=== PATIENT | male | born 1965 ===

== ENCOUNTER 2020-04-13 11:14 | Outpatient (REF) | payer OTHER, SELFPAY ==
[2020-04-13 12:52] LABS: Estimated Average Glucose 171 mg/dL; Hemoglobin A1c % 7.6 %
[2020-04-13 13:11] LABS: Alanine Aminotransferase 48 U/L (0-40); Albumin Level 4.6 g/dL (3.5-5.0); Alkaline Phosphatase 96 U/L (39-117); Anion Gap 12 (12-20); Aspartate Amino Transferase 29 U/L (5-37); Bilirubin Total 0.6 mg/dL (0.0-1.0); Blood Urea Nitrogen 17 mg/dL (9-16); Calcium 9.5 mg/dL (8.4-10.2); Carbon Dioxide 28 mmol/L (22-29); Chloride 102 mmol/L (96-108); Estimated Glomerular Filt Rate > 60; Glucose Random 131 mg/dL (60-115); Potassium 4.2 mmol/l (3.3-5.1); Sodium 138 mmol/L (135-145); Total Protein 7.6 g/dL (6.5-8.0)
[2020-04-13 13:31] LABS: Vitamin D 25-OH Total 28.2 ng/mL (>30)
[2020-04-17 19:11] LABS: Calcium (PTHI) 9.8 mg/dL (8.6-10.3); PTHI 40 pg/mL (14-64)
== END 2020-04-13 11:15 | disposition home or self-care (01) ==
LOC: HO.LAB 11:14
PROVIDERS: PCP Physician Assistant; Visit Provider Internal Medicine
DX: E11.65 Type 2 diabetes mellitus with hyperglycemia (principal); E83.52 Hypercalcemia; E55.9 Vitamin D deficiency, unspecified
CPT/HCPCS: 80053; 82306; 83036; 83970

== ENCOUNTER 2020-06-13 10:57 | Outpatient (REF) | payer OTHER, SELFPAY ==
[2020-06-13 13:05] LABS: Alanine Aminotransferase 30 U/L (0-40); Albumin Level 4.8 g/dL (3.5-5.0); Alkaline Phosphatase 84 U/L (39-117); Anion Gap 15 (12-20); Aspartate Amino Transferase 23 U/L (5-37); Bilirubin Total 0.5 mg/dL (0.0-1.0); Blood Urea Nitrogen 21 mg/dL (9-16); Calcium 10.1 mg/dL (8.4-10.2); Carbon Dioxide 25 mmol/L (22-29); Chloride 102 mmol/L (96-108); Cholesterol 220 mg/dL; Estimated Glomerular Filt Rate > 60; Glucose Random 159 mg/dL (60-115); HDL Cholesterol 41 mg/dL; LDL Cholesterol Calculated 124 mg/dl; Potassium 4.2 mmol/l (3.3-5.1); Sodium 138 mmol/L (135-145); Total Protein 7.8 g/dL (6.5-8.0); Triglycerides 279 mg/dL
[2020-06-13 13:22] LABS: Estimated Average Glucose 180 mg/dL; Hemoglobin A1c % 7.9 %
[2020-06-13 13:43] LABS: Creatinine Urine 60.73 mg/dL
[2020-06-13 13:45] LABS: Creatinine Urine 62.27 mg/dL; Microalbum/Creatinine Ratio Ur 96.3 ug/mg cr
[2020-06-14 09:53] LABS: LDL Cholesterol Direct 135 mg/dL (<100)
== END 2020-06-13 10:58 | disposition home or self-care (01) ==
LOC: HO.LAB 10:57
PROVIDERS: PCP Physician Assistant; Visit Provider Internal Medicine
DX: E11.65 Type 2 diabetes mellitus with hyperglycemia (principal); E78.5 Hyperlipidemia, unspecified
CPT/HCPCS: 36415; 80053; 80061; 82043; 83036; 83721

== ENCOUNTER → 2020-07-11 11:00 | Outpatient (BNVA) | payer OTHER, SELFPAY | PROVIDERS: PCP Physician Assistant; Visit Provider Internal Medicine Gastroenterology ==

== ENCOUNTER → 2020-08-14 12:53 | Outpatient (BNVA) | payer OTHER, SELFPAY | PROVIDERS: PCP Physician Assistant; Visit Provider Internal Medicine | DX: E11.65 Type 2 diabetes mellitus with hyperglycemia (principal); E78.5 Hyperlipidemia, unspecified; E83.52 Hypercalcemia; I10 Essential (primary) hypertension | CPT/HCPCS: 82947 ==

== ENCOUNTER 2020-08-17 11:28 | Outpatient (REF) | payer OTHER, SELFPAY ==
[2020-08-17 13:32] LABS: Alanine Aminotransferase 27 U/L (0-40); Albumin Level 4.6 g/dL (3.5-5.0); Alkaline Phosphatase 93 U/L (39-117); Anion Gap 12 (12-20); Aspartate Amino Transferase 25 U/L (5-37); Bilirubin Total 0.9 mg/dL (0.0-1.0); Blood Urea Nitrogen 27 mg/dL (9-16); Calcium 9.7 mg/dL (8.4-10.2); Carbon Dioxide 26 mmol/L (22-29); Chloride 102 mmol/L (96-108); Cholesterol 196 mg/dL; Estimated Glomerular Filt Rate 49; Glucose Random 256 mg/dL (60-115); HDL Cholesterol 40 mg/dL; LDL Cholesterol Calculated 78 mg/dl; Potassium 4.4 mmol/L (3.3-5.1); Sodium 136 mmol/L (135-145); Total Protein 7.5 g/dL (6.5-8.0); Triglycerides 391 mg/dL
[2020-08-17 17:49] LABS: Anion Gap 16 (12-20); Blood Urea Nitrogen 24 mg/dL (9-16); Calcium 9.3 mg/dL (8.4-10.2); Carbon Dioxide 26 mmol/L (22-29); Chloride 99 mmol/L (96-108); Estimated Glomerular Filt Rate > 60; Glucose Random 87 mg/dL (60-115); Potassium 3.5 mmol/L (3.3-5.1); Sodium 137 mmol/L (135-145)
[2020-08-18 02:46] LABS: LDL Cholesterol Direct 97 mg/dL (<100)
== END 2020-08-17 11:29 | disposition home or self-care (01) ==
LOC: HO.LAB 11:28
PROVIDERS: PCP Physician Assistant; Visit Provider Internal Medicine
DX: E11.65 Type 2 diabetes mellitus with hyperglycemia (principal)
CPT/HCPCS: 36415; 80048; 80053; 80061; 83721

== ENCOUNTER 2020-08-30 16:03 | Outpatient (REF) | payer OTHER, SELFPAY ==
--- NOTE | ~2020-08-30 | XR_ITS ---
EXAMINATION: XR CHEST CLINICAL INFORMATION: Cough COMPARISON: None TECHNIQUE: 2 views of the chest were obtained. FINDINGS: No convincing evidence for an acute process. Lung jones are grossly clear. The heart size is within normal limits. The hilar structures do not appear pathologically enlarged. There is no effusion. Mild degenerative changes in the thoracic spine. XR/XR chest 2V IMPRESSION: No acute process.
== END 2020-08-30 16:04 | disposition home or self-care (01) ==
LOC: HO.HMGCX 16:03
PROVIDERS: PCP Physician Assistant; Visit Provider Nurse Practitioner Family
DX: R05 Cough (principal)
CPT/HCPCS: 71046

== ENCOUNTER 2020-08-30 16:52 | Outpatient (REF) | payer OTHER, SELFPAY ==
[2020-08-31 12:35] LABS: Influenza A PCR NEGATIVE (Negative); Influenza B PCR NEGATIVE (Negative); Resp Syncy Virus RNA Qual PCR NEGATIVE (Negative); SARS COV2 PCR INHOUSE NEGATIVE (Negative)
== END 2020-08-30 16:53 | disposition home or self-care (01) ==
LOC: HO.LAB 16:52
PROVIDERS: Visit Provider Nurse Practitioner Family
DX: R05 Cough (principal); Z20.822 Contact with and (suspected) exposure to COVID-19
CPT/HCPCS: 0241U; 36415

== ENCOUNTER 2020-10-02 07:13 | Outpatient (REF) | payer OTHER, SELFPAY | END 2020-10-02 07:14 | disposition home or self-care (01) | LOC: HO.HMGCLDS 07:13 | PROVIDERS: PCP Physician Assistant; Visit Provider Internal Medicine | DX: Z20.822 Contact with and (suspected) exposure to COVID-19 (principal) | CPT/HCPCS: C9803; U0003; U0005 ==

== ENCOUNTER 2020-11-07 14:54 | Emergency (ER) | payer OTHER, SELFPAY ==
--- NOTE | ~2020-11-07 | US_ITS ---
EXAMINATION: PENILE ULTRASOUND CLINICAL INFORMATION: Ecchymosis with trauma with question of penile fracture COMPARISON: None TECHNIQUE: Ultrasound of the penis was performed with color flow Doppler imaging. FINDINGS: Both corpora cavernosum corpora spongiosum appear normal. No break or discontinuity is seen in the tunica albuginea. There is diffuse skin thickening present but no focal hematoma is identified. Color-flow Doppler imaging shows no abnormal areas of blood flow outside of the corpora. US/US penile IMPRESSION: Penile edema, but no evidence of traumatic rupture.
[2020-11-07 15:00] VITALS: BP 137/79; PULSE 80; RESP 18; TEMP 36.8; O2SAT 99; BMI 25.8
--- NOTE | 2020-11-07 16:49 | ED.MALEGU ---
HPI - Male Genitourinary General Chief complaint: Urogenital-Male Stated complaint: URINE ISSUE Time Seen by Provider: 11/07/20 16:49 Source: patient Mode of arrival: ambulatory Limitations: no limitations History of Present Illness HPI Narrative: Patient noticed slight pain in the penis 4 weeks ago after forceful intercourse. Able to urinate no significant pain today while masturbating he noticed slight discomfort with ecchymosis on the dorsum of the penis no hematuria no significant pain patient is supposed to see urologist next week came here because he noticed a discoloration Related Data Home Medications Medication Instructions Recorded Confirmed cholecalciferol (vitamin D3) 50 50 mcg PO DAILY 04/05/20 08/14/20 mcg (2,000 unit) capsule empagliflozin 25 mg tablet 25 mg PO QAM 04/05/20 08/14/20 blood sugar diagnostic #10 ea 05/22/20 08/14/20 blood-glucose meter #1 ea 05/22/20 08/14/20 ibuprofen 800 mg tablet 800 mg PO Q8H PRN 05/22/20 08/14/20 lancets 28 gauge #100 ea 05/22/20 08/14/20 lancets 30 gauge #100 ea 05/22/20 08/14/20 Previous Rx's Medication Instructions Recorded atorvastatin 40 mg tablet 40 mg PO DAILY 30 Days #30 tab 04/05/20 lisinopril 2.5 mg tablet 2.5 mg PO DAILY 30 Days #30 tab 04/05/20 amoxicillin 875 mg-potassium 1 tab PO BID #14 tab 04/28/20 clavulanate 125 mg tablet pentoxifylline 400 mg 400 mg PO BID 90 Days #180 tab 05/11/20 tablet,extended release pen needle, diabetic 32 gauge x #50 ea 08/14/20 1/ semaglutide 0.5 mg SUBCUT QWEEK #1.5 ml 08/14/20 azithromycin 250 mg tablet See Rx Instructions PO .COMPLEX #6 08/30/20 tab prednisone 20 mg tablet 40 mg PO DAILY 5 Days #10 tab 08/30/20 allopurinol 100 mg tablet 100 mg PO DAILY 90 Days #90 tab 10/10/20 Allergies Allergy/AdvReac Type Severity Reaction Status Date / Time No Known Allergies Allergy Verified 08/30/20 16:31 Review of Systems Review of Systems: Yes all other systems are reviewed and are negative PMFSH Past Medical History Medical History Acute idiopathic gout of left foot Colon cancer screening Erectile dysfunction Goiter HLD (hyperlipidemia) HTN (hypertension) Hypercalcemia Hyperlipidemia Hypertriglyceridemia Hypogonadism in male Impaired glucose metabolism HERNANDEZ (nonalcoholic steatohepatitis) Pain of right thumb Restless legs syndrome T2DM (type 2 diabetes mellitus) Tubular adenoma of colon Type 2 diabetes mellitus with hyperglycemia, without long-term current use of insulin Urticaria Vitamin D deficiency Surgical History Hx of colonoscopy Hx of vasectomy Family History Family History Father Diabetes CVA (cerebral vascular accident) Mother Diabetes CVD (cardiovascular disease) Breast cancer screening Social History Social History Household Members: Spouse Alcohol intake: current Alcohol intake frequency: does not drink Physical Exam Vital Signs: Vital Signs: Last Vital Signs Temp 98.2 F 11/07/20 15:00 Pulse 80 11/07/20 15:00 Resp 18 11/07/20 15:00 BP 137/79 11/07/20 15:00 Pulse Ox 99 11/07/20 15:00 Body Mass Index 25.8 Const: General: no acute distress GI: Inspection: Yes normal to inspection Palpation (GI): Soft to palpation and nontender : Penis: circumcised, ecchymosis and no masses Meatus: meatus normal Scrotum: scrotum normal Testes: Testes normal Male genitals images: 1. Ecchymosis on dorsum of the penis normal contour of the penis muscles no deformity noticed nontender MDM - Male Genitourinary MDM Narrative Medical decision making narrative: Patient has ecchymosis of the penis after forceful masturbation ultrasound negative for any fluid collection or fracture case discussed with urologist will follow-up as outpatient as needed Lab Data Attestation: I reviewed the patient's lab results. Labs: Lab Results 11/07/20 11/07/20 Range/Units 18:01 18:32 POC Glucose 111 (60-115) mg/dL Urine Color YELLOW Urine Appearance CLEAR Urine pH 6.0 (5.0-8.0) Ur Specific Warren 1.025 (1.005-1.025) Urine Protein NEG (NEG-TRACE) MG/DL Urine Glucose (UA) >=1000 H (NEG) MG/DL Urine Ketones NEG (NEG) MG/DL Urine Blood NEG (NEG) Urine Nitrite NEG (NEG) Ur Leukocyte Esterase NEG (NEG) Urine RBC 0-2 (0) /HPF Urine WBC 0-2 (0-4) /HPF Ur Squamous Epith Cells TRACE /LPF Urine Bacteria NONE /LPF Imaging Data Ultrasound: Radiologist's impression: [address] [id number] ReportSigned Patient: Hill Pantoja [facility]#: [id number]: 1965Acct:[id number]/Sex: 55 / MADM Date: 11/07/20Loc: EDAttending Dr: Ordering Physician: Mark Moreno MD Date of Service: 11/07/20 Procedure(s): US penile Accession Number(s): [id number] cc: Mark Moreno MD~ EXAMINATION: PENILE ULTRASOUND CLINICAL INFORMATION: Ecchymosis with trauma with question of penile fracture COMPARISON: None TECHNIQUE: Ultrasound of the penis was performed with color flow Doppler imaging. FINDINGS: Both corpora cavernosum corpora spongiosum appear normal. No break or discontinuity is seen in the tunica albuginea. There is diffuse skin thickening present but no focal hematoma is identified. Color-flow Doppler imaging shows no abnormal areas of blood flow outside of the corpora. US/US penile IMPRESSION: Penile edema, but no evidence of traumatic ruptur Discharge Plan Discharge Clinical Impression: Contusion Patient Disposition: Home, Self-Care Instructions: Contusion in Adults (ED) Additional Instructions: Local care as advised Follow-up with Dr. Ochoa as scheduled Report to ER if increased pain Prescriptions: No Action amoxicillin-pot clavulanate [Augmentin] 875-125 mg tablet 1 tab PO BID Qty: 14 RF: 0 pentoxifylline 400 mg tablet extended release 400 mg PO BID 90 Days Qty: 180 RF: 1 allopurinol 100 mg tablet 100 mg PO DAILY 90 Days Qty: 90 RF: 2 (DME) lancets 28 gauge misc See Rx Instructions ea topical BID Qty: 100 RF: 0 (DME) lancets 30 gauge misc See Rx Instructions lancet .ROUTE BID Qty: 100 RF: 0 (DME) OneTouch Verio test strips Strip See Rx Instructions strip Not Applicable BID Qty: 10 RF: 0 ibuprofen 800 mg tablet 800 mg PO Q8H PRN (Reason: pain) RF: 0 (DME) blood-glucose meter Misc See Rx Instructions ea .ROUTE BID Qty: 1 RF: 0 azithromycin 250 mg tablet See Rx Instructions PO .COMPLEX Qty: 6 RF: 0 prednisone 20 mg tablet 40 mg PO DAILY 5 Days Qty: 10 RF: 0 Ozempic 0.25 mg or 0.5 mg(2 mg/1.5 mL) pen injector 0.5 mg subcut QWEEK Qty: 1.5 RF: 11 (DME) pen needle, diabetic [BD Ultra-Fine Micro Pen Needle] 32 gauge x 1/4 needle See Rx Instructions .ROUTE .MEDSUPPLY Qty: 50 RF: 11 Jardiance 25 mg tablet 25 mg PO QAM RF: 0 cholecalciferol (vitamin D3) 50 mcg (2,000 unit) capsule 50 mcg PO DAILY RF: 0 atorvastatin 40 mg tablet 40 mg PO DAILY 30 Days Qty: 30 RF: 11 lisinopril 2.5 mg tablet 2.5 mg PO DAILY 30 Days Qty: 30 RF: 11 Referrals: Jan Ochoa MD [Physician] - 1 week Interventions: ED Discharge Assessment Last Done: 11/07/20 19:06 Discharge Date/Time: 11/07/20 19:06
[2020-11-07 18:18] LABS: Glucose Urine UA >=1000 MG/DL (NEG); Leukocyte Esterase Urine NEG (NEG); Nitrite Urine NEG (NEG); Specific Gravity - Urine 1.025 (1.005-1.025); Urine Blood NEG (NEG); Urine Ketones NEG (NEG); Urine Protein NEG (NEG-TRACE)
[2020-11-07 18:24] LABS: Appearance Urine CLEAR; Color Urine YELLOW
[2020-11-07 18:36] LABS: Glucose, Whole Blood 111 mg/dL (60-115)
[2020-11-07 18:42] LABS: RBC Urine 0-2 /HPF (0); Squamous Epithelial Cell Urine TRACE /LPF; WBC Urine 0-2 /HPF (0-4)
== END 2020-11-07 19:06 | disposition home or self-care (01) ==
PROVIDERS: Emergency Provider Internal Medicine; PCP Physician Assistant
DX: N48.89 Other specified disorders of penis (principal); S30.21XA Contusion of penis, initial encounter; X50.1XXA Overexertion from prolonged static or awkward postures, initial encounter; I10 Essential (primary) hypertension; E11.9 Type 2 diabetes mellitus without complications; E78.5 Hyperlipidemia, unspecified; Y93.89 Activity, other specified; Y92.013 Bedroom of single-family (private) house as the place of occurrence of the external cause; Y99.9 Unspecified external cause status
CPT/HCPCS: 76857; 81001; 82947; 99283; 99284

== ENCOUNTER → 2020-11-20 12:01 | Outpatient (BNVA) | payer OTHER, SELFPAY | PROVIDERS: PCP Physician Assistant; Visit Provider Internal Medicine | DX: E11.65 Type 2 diabetes mellitus with hyperglycemia (principal); E83.52 Hypercalcemia; E78.5 Hyperlipidemia, unspecified; I10 Essential (primary) hypertension; Z79.899 Other long term (current) drug therapy | CPT/HCPCS: 82947 ==

== ENCOUNTER → 2021-02-12 08:21 | Outpatient (BNVA) | payer OTHER, SELFPAY | PROVIDERS: PCP Physician Assistant; Visit Provider Internal Medicine Gastroenterology ==

== ENCOUNTER → 2021-02-28 12:39 | Outpatient (BNVA) | payer OTHER, SELFPAY | PROVIDERS: PCP Physician Assistant; Visit Provider Nurse Practitioner Gerontology | DX: E11.65 Type 2 diabetes mellitus with hyperglycemia (principal); E78.5 Hyperlipidemia, unspecified; E55.9 Vitamin D deficiency, unspecified; I10 Essential (primary) hypertension | CPT/HCPCS: 82947; 83036 ==

== ENCOUNTER 2021-03-12 09:58 | Outpatient (REF) | payer OTHER, SELFPAY ==
--- NOTE | ~2021-03-12 | US_ITS ---
EXAMINATION: US ABDOMEN LIMITED WITH LIVER ELASTOGRAPHY CLINICAL INFORMATION: Mesh. COMPARISON: Previous ultrasound November [address] June 2017 TECHNIQUE: Real-time imaging of the abdominal viscera. Noninvasive ultrasound liver fibrosis assessment is performed using Yovani ElastPQ point quantification shear wave elastography (pSWE) with a C5-2 MHz transducer. Multiple elastography samples are obtained. FINDINGS: PANCREAS: The visualized pancreatic head is normal in appearance. The remainder of the pancreas is obscured from visualization by the overlying bowel gas. LIVER: Liver echotexture is increased probably representing fatty infiltration. There is a hypoechoic area adjacent to the gallbladder, a characteristic location of focal fatty sparing.. No other focal lesion or intrahepatic biliary duct dilatation. The liver is normal in size and contour. The right lobe measures 14 cm in length. The left lobe measures 11 cm in length. Portal flow is normal/hepatopedal Shear wave liver elastography median stiffness is 1.8 m/s (reference: normal median stiffness is 1.3 m/s or less). IQR/median stiffness to assess sampling precision is 0.1 (reference: good quality data set is IQR/median stiffness of 0.15 or less). GALLBLADDER: Normal. COMMON BILE DUCT: Normal in caliber measuring 0.2 cm in diameter. RIGHT KIDNEY: Normal. No hydronephrosis. No renal calculi or focal parenchymal lesions. The kidney measures 10 cm in maximum dimension. FREE FLUID: None. US/US abdomen fu w elastography IMPRESSION: 1. Impression: Echogenic liver probably representing fatty infiltration. Contracted gallbladder. Limited visualization of the pancreas. 2. Liver elastography: Adequate liver sampling. Slightly elevated liver stiffness suggestive of compensated advanced chronic liver disease but need further test for confirmation. REFERENCE: Society of Radiologists in Ultrasound Liver Stiffness Thresholds (2019): LIVER STIFFNESS THRESHOLDS: *Liver Stiffness equal or less than 1.3 m/s: High probability of being normal. *Liver Stiffness less than 1.7 m/s: In the absence of other known clinical signs, rules out compensated advanced chronic liver disease. *Liver Stiffness 1.7-2.1 m/s: Suggestive of compensated advanced chronic liver disease but need further test for confirmation. *Liver Stiffness over 2.1 m/s: Rules in compensated advanced chronic liver disease. *Liver Stiffness over 2.4 m/s: Suggestive of clinically significant portal hypertension. QUALITY OF DATA SET: *IQR/Median value equal or less than 0.15 implies a quality data set. *IQR/Median value over 0.15 implies a poor quality data set. SIGNIFICANT CHANGE FROM PRIOR EXAM: Significant change if liver stiffness measurement is 10% or greater from prior exam. OTHER CONSIDERATIONS: The stage of liver fibrosis may be overestimated in the setting of acute hepatitis, liver inflammation, elevated liver function tests, hepatic vascular congestion, obstructive cholestasis, non-fasting state, and infiltrative diseases such as amyloidosis and lymphoma. In some patients with NAFLD, the liver stiffness thresholds for compensated advanced chronic liver disease may be lower. In causes other than viral hepatitis and NAFLD, liver stiffness thresholds are not well established.
== END 2021-03-12 09:59 | disposition home or self-care (01) ==
LOC: HO.US 09:58
PROVIDERS: PCP Physician Assistant; Visit Provider Internal Medicine Rheumatology
DX: K75.81 Nonalcoholic steatohepatitis (NASH) (principal)
CPT/HCPCS: 76705; 76981

== ENCOUNTER → 2021-09-24 08:43 | Outpatient (BNVA) | payer OTHER, SELFPAY | PROVIDERS: PCP Physician Assistant; Visit Provider Nurse Practitioner Gerontology | DX: E11.65 Type 2 diabetes mellitus with hyperglycemia (principal); E78.5 Hyperlipidemia, unspecified; E55.9 Vitamin D deficiency, unspecified; I10 Essential (primary) hypertension | CPT/HCPCS: 82947 ==

== ENCOUNTER 2021-09-24 09:19 | Outpatient (REF) | payer OTHER, SELFPAY ==
[2021-09-24 11:15] LABS: Alanine Aminotransferase 31 U/L (0-40); Albumin Level 4.5 g/dL (3.5-5.0); Alkaline Phosphatase 85 U/L (39-117); Anion Gap 12 (12-20); Aspartate Amino Transferase 21 U/L (5-37); Bilirubin Total 0.5 mg/dL (0.0-1.0); Blood Urea Nitrogen 15 mg/dL (9-16); Calcium 9.9 mg/dL (8.4-10.2); Carbon Dioxide 29 mmol/L (22-29); Chloride 104 mmol/L (96-108); Cholesterol 211 mg/dL; Estimated Glomerular Filt Rate > 60; Glucose Fasting 127 mg/dL (60-99); HDL Cholesterol 36 mg/dL; LDL Cholesterol Calculated 131 mg/dl; Potassium 4.9 mmol/L (3.3-5.1); Sodium 140 mmol/L (135-145); Total Protein 7.7 g/dL (6.5-8.0); Triglycerides 224 mg/dL
[2021-09-24 11:36] LABS: Prostate Specific Antigen Scr 1.13 ng/mL (<0.05-4.0); Vitamin D 25-OH Total 17.5 ng/mL (>30)
[2021-09-24 12:34] LABS: Creatinine Urine 89.81 mg/dL; Microalbum/Creatinine Ratio Ur 80.1 ug/mg cr
[2021-09-26 03:12] LABS: LDL Cholesterol Direct 130 mg/dL (<100)
== END 2021-09-24 09:20 | disposition home or self-care (01) ==
LOC: HO.10HDL 09:19
PROVIDERS: Physician Assistant; Visit Provider Nurse Practitioner Gerontology
DX: E11.65 Type 2 diabetes mellitus with hyperglycemia (principal); E11.21 Type 2 diabetes mellitus with diabetic nephropathy; N52.9 Male erectile dysfunction, unspecified; I10 Essential (primary) hypertension; E78.5 Hyperlipidemia, unspecified; K75.81 Nonalcoholic steatohepatitis (NASH); E55.9 Vitamin D deficiency, unspecified; Z12.5 Encounter for screening for malignant neoplasm of prostate; Z79.4 Long term (current) use of insulin
CPT/HCPCS: 36415; 80053; 80061; 82043; 82306; 83721; 84153

== ENCOUNTER → 2021-09-28 11:16 | Outpatient (BNVA) | payer OTHER, SELFPAY | PROVIDERS: Referring Provider Physician Assistant; Visit Provider Internal Medicine Gastroenterology | DX: Z13.89 Encounter for screening for other disorder (principal) ==

== ENCOUNTER 2022-03-25 11:38 | Outpatient (REF) | payer OTHER, SELFPAY ==
--- NOTE | ~2022-03-25 | XR_ITS ---
EXAMINATION: XR hand wrist RT, XR hand wrist LT CLINICAL INFORMATION: Reason for Exam M79.641 - Pain in right hand COMPARISON: None. TECHNIQUE: 4 views of the bilateral hands and wrists XR/XR hand wrist RT FINDINGS/IMPRESSION: * Punctate ossific density adjacent to the right distal ulna at the ulnocarpal joint may reflect an intra-articular loose body or age-indeterminate. Correlate with point tenderness no acute fracture or dislocation of the left hand. * Joint spaces are maintained without significant degenerative change. * No soft tissue abnormality.
--- NOTE | ~2022-03-25 | XR_ITS ---
EXAMINATION: XR hand wrist RT, XR hand wrist LT CLINICAL INFORMATION: Reason for Exam M79.641 - Pain in right hand COMPARISON: None. TECHNIQUE: 4 views of the bilateral hands and wrists XR/XR hand wrist LT FINDINGS/IMPRESSION: * Punctate ossific density adjacent to the right distal ulna at the ulnocarpal joint may reflect an intra-articular loose body or age-indeterminate. Correlate with point tenderness no acute fracture or dislocation of the left hand. * Joint spaces are maintained without significant degenerative change. * No soft tissue abnormality.
[2022-03-25 12:23] LABS: Hematocrit 43.8 % (42.0-52.0); Hemoglobin 15.5 g/dl (14.0-18.0); Mean Corpuscular HGB Conc 35.4 g/dl (31.0-36.0); Mean Corpuscular Hemoglobin 31.6 pg (27.0-33.0); Mean Corpuscular Volume 89.4 fL (80.0-98.0); Mean Platelet Volume 10.2 fL (9.4-12.4); Platelet Count 178 X10*3/uL (160-400); White Blood Count 7.4 X10*3/uL (4.8-10.8)
[2022-03-25 12:38] LABS: Estimated Average Glucose 154 mg/dL
[2022-03-25 12:46] LABS: Creatinine Urine 176.78 mg/dL; Microalbum/Creatinine Ratio Ur 125.5 ug/mg cr
[2022-03-25 12:52] LABS: Alanine Aminotransferase 43 U/L (0-40); Albumin Level 4.8 g/dL (3.5-5.0); Alkaline Phosphatase 91 U/L (39-117); Anion Gap 15 (12-20); Aspartate Amino Transferase 30 U/L (5-37); Bilirubin Total 0.6 mg/dL (0.0-1.0); Blood Urea Nitrogen 14 mg/dL (9-16); Carbon Dioxide 25 mmol/L (22-29); Chloride 106 mmol/L (96-108); Cholesterol 221 mg/dL; Estimated Glomerular Filt Rate > 60; Glucose Fasting 107 mg/dL (60-99); HDL Cholesterol 38 mg/dL; LDL Cholesterol Calculated 132 mg/dl; Potassium 4.8 mmol/L (3.3-5.1); Rheumatoid Factor < 15.0 IU/mL (<15.0); Sodium 141 mmol/L (135-145); Total Protein 7.9 g/dL (6.5-8.0); Triglycerides 255 mg/dL; Uric Acid 7.1 mg/dL (3.4-7.0)
[2022-03-25 13:06] LABS: TSH reflex Free T4 2.47 uIU/mL (0.32-4.0)
[2022-03-27 15:36] LABS: Cyclic Citrullinated Peptide <16 UNITS
== END 2022-03-25 11:39 | disposition home or self-care (01) ==
LOC: HO.LAB 11:38
PROVIDERS: PCP Physician Assistant; Visit Provider Physician Assistant
DX: E11.65 Type 2 diabetes mellitus with hyperglycemia (principal); I10 Essential (primary) hypertension; E78.5 Hyperlipidemia, unspecified; M10.9 Gout, unspecified; M79.641 Pain in right hand; M79.642 Pain in left hand
CPT/HCPCS: 36415; 73110; 73130; 80053; 80061; 82043; 83036; 84443; 84550; 85027; 86200; 86431

== ENCOUNTER 2022-08-01 10:01 | Outpatient (REF) | payer OTHER, SELFPAY ==
--- NOTE | ~2022-08-01 | US_ITS ---
EXAMINATION: US ABDOMEN LIMITED WITH LIVER ELASTOGRAPHY CLINICAL INFORMATION: Nonalcoholic steatohepatitis. COMPARISON: None. TECHNIQUE: Real-time imaging of the abdominal viscera. Noninvasive ultrasound liver fibrosis assessment is performed using Yovani ElastPQ point quantification shear wave elastography (2D-SWE) with a C5-2 MHz transducer. Multiple elastography samples are obtained. FINDINGS: PANCREAS: Normal. The visualized pancreatic head and body are normal in appearance. The remainder of the pancreas is obscured from visualization by the overlying bowel gas. LIVER: The liver demonstrates normal size, contour and diffuse increased echogenicity. There is focal fatty sparing adjacent to gallbladder. No focal lesion or intrahepatic biliary duct dilatation. The right hepatic lobe measures 15.1 cm in length. The left hepatic lobe measures 11.7 cm in length. Portal flow is hepatopedal. Shear wave liver elastography median stiffness is 1.90 m/s (reference: normal median stiffness is 1.3 m/s or less). IQR/median stiffness to assess sampling precision is 0.06 (reference: good quality data set is IQR/median stiffness of 0.15 or less). GALLBLADDER: Normal. The gallbladder is physiologically distended without evidence of stones, sludge, polyps, wall thickening or pericholecystic fluid. COMMON BILE DUCT: Normal in caliber measures 0.3 cm in diameter. RIGHT KIDNEY: Normal. No hydronephrosis. No renal calculi or focal parenchymal lesions. The kidney measures 9.0 cm in maximum dimension. FREE FLUID: None. US/US abdomen fu w elastography IMPRESSION: 1. Diffuse hepatic steatosis without focal lesion. There is focal fatty sparing adjacent to gallbladder. 2. Liver elastography: Median liver stiffness measures 1.90 m/s which corresponds to cACLD suggestive. REFERENCE: Society of Radiologists in Ultrasound Liver Stiffness Thresholds (2020): LIVER STIFFNESS THRESHOLDS: *Liver Stiffness equal or less than 1.3 m/s: High probability of being normal. *Liver Stiffness less than 1.7 m/s: In the absence of other known clinical signs, rules out compensated advanced chronic liver disease. *Liver Stiffness 1.7-2.1 m/s: Suggestive of compensated advanced chronic liver disease but need further test for confirmation. *Liver Stiffness over 2.1 m/s: Rules in compensated advanced chronic liver disease. *Liver Stiffness over 2.4 m/s: Suggestive of clinically significant portal hypertension. QUALITY OF DATA SET: *IQR/Median value equal or less than 0.15 implies a quality data set. *IQR/Median value over 0.15 implies a poor quality data set. SIGNIFICANT CHANGE FROM PRIOR EXAM: Significant change if liver stiffness measurement is 10% or greater from prior exam. OTHER CONSIDERATIONS: The stage of liver fibrosis may be overestimated in the setting of acute hepatitis, liver inflammation, elevated liver function tests, hepatic vascular congestion, obstructive cholestasis, non-fasting state, and infiltrative diseases such as amyloidosis and lymphoma. In some patients with NAFLD, the liver stiffness thresholds for compensated advanced chronic liver disease may be lower. In causes other than viral hepatitis and NAFLD, liver stiffness thresholds are not well established.
== END 2022-08-01 10:02 | disposition home or self-care (01) ==
LOC: HO.US 10:01
PROVIDERS: PCP Internal Medicine Gastroenterology; Visit Provider Internal Medicine Gastroenterology
DX: K75.81 Nonalcoholic steatohepatitis (NASH) (principal); K74.60 Unspecified cirrhosis of liver
CPT/HCPCS: 76705; 76981

== ENCOUNTER 2022-10-15 11:16 | Outpatient (REF) | payer OTHER, SELFPAY ==
[2022-10-15 12:22] LABS: Hematocrit 39.7 % (42.0-52.0); Mean Corpuscular HGB Conc 35.3 g/dl (31.0-36.0); Mean Corpuscular Hemoglobin 30.9 pg (27.0-33.0); Mean Corpuscular Volume 87.6 fL (80.0-98.0); Mean Platelet Volume 10.4 fL (9.4-12.4); Platelet Count 186 X10*3/uL (160-400); Red Blood Count 4.53 X10*6/uL (4.60-5.80); Red Cell Distribution Width 12.2 % (11.0-16.0); White Blood Count 5.8 X10*3/uL (4.8-10.8)
[2022-10-15 12:40] LABS: Estimated Average Glucose 209 mg/dL; Hemoglobin A1c % 8.9 %
[2022-10-15 13:19] LABS: Alanine Aminotransferase 36 U/L (0-40); Albumin Level 4.5 g/dL (3.5-5.0); Alkaline Phosphatase 98 U/L (39-117); Anion Gap 9 (12-20); Aspartate Amino Transferase 30 U/L (5-37); Bilirubin Total 0.7 mg/dL (0.0-1.0); Blood Urea Nitrogen 14 mg/dL (9-16); Calcium 9.8 mg/dL (8.4-10.2); Carbon Dioxide 30 mmol/L (22-29); Chloride 102 mmol/L (96-108); Cholesterol 189 mg/dL; Estimated Glomerular Filt Rate > 60; Glucose Fasting 141 mg/dL (60-99); HDL Cholesterol 38 mg/dL; LDL Cholesterol Calculated 106 mg/dl; Potassium 4.3 mmol/L (3.3-5.1); Sodium 137 mmol/L (135-145); Total Protein 7.4 g/dL (6.5-8.0); Triglycerides 229 mg/dL
[2022-10-15 13:20] LABS: TSH reflex Free T4 2.14 uIU/mL (0.32-4.0)
[2022-10-15 13:25] LABS: Microalbum/Creatinine Ratio Ur 333.6 ug/mg cr
== END 2022-10-15 11:17 | disposition home or self-care (01) ==
LOC: HO.LAB 11:16
PROVIDERS: PCP Physician Assistant; Visit Provider Physician Assistant
DX: E11.65 Type 2 diabetes mellitus with hyperglycemia (principal); M10.9 Gout, unspecified; I10 Essential (primary) hypertension; E78.5 Hyperlipidemia, unspecified
CPT/HCPCS: 36415; 80053; 80061; 82043; 83036; 84443; 84550; 85027

== ENCOUNTER 2022-12-11 11:16 | Outpatient (AMB) | payer OTHER, SELFPAY ==
[2022-12-11 11:20] VITALS: BP 124/80; PULSE 89; O2SAT 100; BMI 22.1
--- NOTE | 2022-12-11 11:20 | A.OFFPC_ITS ---
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 Lidder Required: No Allergies No Known Allergies Allergy (Verified 12/11/22 11:41) Medication List - Last Reconciled 12/11/22 by ELENITA Maria atorvastatin 40 mg PO DAILY blood sugar diagnostic (OneTouch Verio test strips) 4x daily blood sugar diagnostic 4x daily blood-glucose meter As directed blood-glucose meter (OneTouch Verio Meter) As directed cholecalciferol (vitamin D3) 25 mcg PO DAILY empagliflozin 25 mg PO QAM 30 days gemfibrozil 600 mg PO BID lancets As directed lancets As directed pen needle, diabetic (BD Ultra-Fine Micro Pen Needle) Once a week semaglutide 1 mg (0.75 mL) subcut QWEEK 4 weeks tadalafil (Cialis) 20 mg PO DAILY PRN 10 days Tobacco use date assessed: 12/11/22 HPI Skin Issue HPI Details Patient is a 57-year-old male who presents today for an office visit due to multiple skin moles for long time now. Patient of CHRISTA Salinas. medical history significant for diabetes, hypertension, hyperlipidemia, HERNANDEZ among others. Patient reports skin moles on his left arm right rib area, and right leg. Denies pain, no discharge. Reports that his grandmother did have skin cancer. Wants these moles to be assessed. [facility] Medical History Acute idiopathic gout of left foot Colon cancer screening Erectile dysfunction Goiter HLD (hyperlipidemia) HTN (hypertension) Hyperlipidemia Hypertriglyceridemia Hypogonadism in male Impaired glucose metabolism HERNANDEZ (nonalcoholic steatohepatitis) Pain of right thumb Restless legs syndrome T2DM (type 2 diabetes mellitus) Tubular adenoma of colon Type 2 diabetes mellitus with hyperglycemia, without long-term current use of insulin Urticaria Vitamin D deficiency Surgical History Hx of colonoscopy Hx of vasectomy Family History Father Diabetes CVA (cerebral vascular accident) Mother Diabetes CVD (cardiovascular disease) Breast cancer screening Social History Household Members: Spouse Housing: House Alcohol intake: current Alcohol intake frequency: holidays/special occasions only Alcohol type: beer Patient Tobacco Use Status: Never used Tobacco e-Cigarette/Vaping Use: Never Used service: No Current occupational status: employed Cognitive needs: No Hearing needs: No Vision needs: No Questionnaire PHQ-9 Over the last 2 weeks, how often have you been bothered by any of the following problems? 1. Little interest or pleasure in doing things: not at all 2. Feeling down, depressed, or hopeless: not at all 3. Trouble falling or staying asleep, or sleeping too much: not at all 4. Feeling tired or having little energy: not at all 5. Poor appetite or overeating: not at all 6. Feeling bad about yourself - or that you are a failure or have let yourself or your family down: not at all 7. Trouble concentrating on things, such as reading the newspaper or watching television: not at all 8. Moving or speaking so slowly that other people could have noticed. Or the opposite - being so fidgety or restless that you have been moving around a lot more than usual: not at all 9. Thoughts that you would be better off or of hurting yourself in some way: not at all Total score: 0 Depression Screening Interpretation: Negative 22396 - PHQ-9 Billing: Yes Source: Developed by Drs. Oniel Paul, Evelin Wright, Keenan Schmidt and colleagues, with an educational valdez from [employer]. Thrive Questionnaire Date Thrive assessed: 08/12/22 AUDIT C Alcohol Use Questionnaire (AUDIT-C) 1. How often do you have a drink containing alcohol?: Monthly or less 2. How many drinks containing alcohol do you have on a typical day when you are drinking?: 1 or 2 3. How often do you have six or more drinks on one occasion?: Never Total Score: 1 Score Reviewed/Action Taken: No PAULA-7 AMB Questionnaire PAULA-7 Date PAULA - 7 assessed: 08/12/22 Source: Developed by Drs. Oniel Paul, Evelin Wright, Keenan Schmidt and colleagues, with an educational valdez from [employer]. Review of Systems Const Denies body aches, Denies chills, Denies fever(s) and Denies headache(s) Eyes Denies change in vision ENT Denies dizziness, Denies otalgia, Denies headache(s), Denies nasal discharge, Denies sinus pain and Denies sore throat Card Denies chest pain, Denies edema, Denies lightheadedness and Denies dyspnea Resp Denies cough and Denies dyspnea GI Denies abdominal pain and Denies vomiting Denies dysuria Musc Denies myalgias Skin/Breast Reports as per HPI and Denies rash Neuro Denies dizziness and Denies headache(s) Physical exam (Primary Care) Vital Signs: Last Vital Signs Pulse 89 12/11/22 11:20 BP 124/80 12/11/22 11:20 Pulse Ox 100 12/11/22 11:20 Oxygen Delivery Method Room Air 12/11/22 11:20 BMI result Body Mass Index 22.1 Tobacco/Smoking Status: Tobacco use Status Tobacco use date assessed 12/11/22 12/11/22 11:21 Patient Tobacco Use Status Never used Tobacco 12/11/22 11:21 e-Cigarette/Vaping Use Never Used 12/11/22 11:21 PHQ-9: PHQ-9 Score PHQ-9: Total score 0 12/11/22 11:27 Depression Screening Interpretation: Negative Thrive Assessment: Date of Thrive Assessment Date Thrive assessed 08/12/22 12/11/22 11:21 Const General: cooperative and no acute distress Orientation/consciousness: patient oriented x3 HENMT Head: Yes normocephalic and Yes atraumatic Mouth: oropharynx normal and moist mucous membranes Throat: Yes posterior oropharynx normal Eyes General: appearance normal, both eyes and all related structures Neck Neck: Yes normal visual inspection and Yes full ROM Resp Effort & Inspection: normal respiratory effort and able to speak in complete sentences Auscultation: clear to auscultation bilaterally, no crackles, no rales, no rhonchi and no wheezes Cardio Rate: regular rate Rhythm: regular rhythm Heart sounds: S1 normal heart sound present and S2 normal heart sound present GI Auscultation: normal bowel sounds Skin Other: Left wrist brown lesion different shades of brown 5mm, nontender, slightly raised Right lateral chest brown lesion with different shades of brown 5 mm, nontender, slightly raised Right distal lateral leg brown lesion with different shades of brown 1 cm in diameter, nontender, slightly raised Neuro General: patient oriented x3 Gait exam (Neuro): Normal gait present Extrem General: Yes full ROM and No edema Assessment and Plan Assessment & Plan (1) Numerous skin moles: Code(s): D22.9 - Melanocytic nevi, unspecified Plan: See HPI and physical exam for details. Referral to Dermatology for an evaluation and treatment. Patient agreed with the plan. Orders: Referrals Dermatology Referral D22.9 - Melanocytic nevi, unspecified Coding Level of Care Code Est Pt Level 3 (81385) Diagnoses Numerous skin moles D22.9
== END 2022-12-11 11:50 | disposition home or self-care (01) ==
PROVIDERS: PCP Physician Assistant; Visit Provider Nurse Practitioner Family
DX: D22.9 Melanocytic nevi, unspecified (principal)
CPT/HCPCS: 99213

== ENCOUNTER 2023-02-13 10:09 | Outpatient (AMB) | payer OTHER, SELFPAY ==
[2023-02-13 10:17] VITALS: BP 122/80; PULSE 70; O2SAT 100; BMI 21.9
--- NOTE | 2023-02-13 10:17 | A.OFFPC_ITS ---
Vital Signs 02/13/23 10:17 Height 5 ft 2 in Weight 120 lb BMI 21.9 BP 122/80 Blood Pressure Location Lt brachial Position Sitting Pulse 70 Pulse Source Pulse Oximeter Pulse Oximetry (%) 100 Oxygen Delivery Method Room Air Intake Visit Reasons: f/u DMII Intake Note: Patient is here to follow up on DMII. Door Captain Required: No Accompanied by: Self / Same As Patient Allergies No Known Allergies Allergy (Verified 02/13/23 10:45) Medication List - Last Reconciled 02/13/23 by Guy Salinas PA-C atorvastatin 40 mg PO DAILY blood sugar diagnostic (OneTouch Verio test strips) 4x daily blood sugar diagnostic 4x daily blood-glucose meter As directed blood-glucose meter (OneTouch Verio Meter) As directed cholecalciferol (vitamin D3) 25 mcg PO DAILY empagliflozin 25 mg PO QAM 30 days gemfibrozil 600 mg PO BID lancets As directed lancets As directed pen needle, diabetic (BD Ultra-Fine Micro Pen Needle) Once a week semaglutide 1 mg (0.75 mL) subcut QWEEK 4 weeks tadalafil (Cialis) 20 mg PO DAILY PRN 10 days Tobacco use date assessed: 12/11/22 HPI f/u DMII HPI Details Patient is a 58-year-old male here today for follow-up visit. ? Patient has a past history significant for type 2 diabetes, idiopathic gout hyperlipidemia, fatty liver disease, hypertension. .. .. DMII:? was previously followed by lens mounter now has PCP managing diabetes.. Patient's most recent A1c elevated. At last visit we did discuss increasing Ozempic to 1 mg weekly. Sugars have been slightly better. PLAN: He will work on lifestyle modifications on reducing his blood sugars. .. Gout:? Continues on allopurinol 100 mg daily.? Not had any recent gout flares.? He does use ibuprofen on a p.r.n. basis for joint pains. [facility] Medical History Acute idiopathic gout of left foot Colon cancer screening Erectile dysfunction Goiter HLD (hyperlipidemia) HTN (hypertension) Hyperlipidemia Hypertriglyceridemia Hypogonadism in male Impaired glucose metabolism HERNANDEZ (nonalcoholic steatohepatitis) Pain of right thumb Restless legs syndrome T2DM (type 2 diabetes mellitus) Tubular adenoma of colon Type 2 diabetes mellitus with hyperglycemia, without long-term current use of insulin Urticaria Vitamin D deficiency Surgical History Hx of colonoscopy Hx of vasectomy Family History Father Diabetes CVA (cerebral vascular accident) Mother Diabetes CVD (cardiovascular disease) Breast cancer screening Social History Household Members: Spouse Housing: House Alcohol intake: current Alcohol intake frequency: holidays/special occasions only Alcohol type: beer Patient Tobacco Use Status: Never used Tobacco e-Cigarette/Vaping Use: Never Used service: No Current occupational status: employed Cognitive needs: No Hearing needs: No Vision needs: No Questionnaire Thrive Questionnaire Date Thrive assessed: 08/12/22 PAULA-7 AMB Questionnaire PAULA-7 Date PAULA - 7 assessed: 08/12/22 Source: Developed by Drs. Oniel Paul, Evelin Wright, Keenan Schmidt and colleagues, with an educational valdez from [employer]. Review of Systems Const Denies headache(s) Eyes Denies loss of vision ENT Denies vertigo, Denies dizziness, Denies headache(s) and Denies sore throat Card Denies chest pain, Denies leg edema and Denies lightheadedness Resp Denies cough, Denies hemoptysis and Denies wheezing GI Denies abdominal pain, Denies melena, Denies constipation, Denies diarrhea and Denies vomiting Denies dysuria, Denies urinary frequency and Denies urinary urgency Musc Denies arthralgias, Denies joint swelling, Denies numbness and Denies tingling Neuro Denies Abnormal speech present, Denies behavioral changes, Denies vertigo, Denies dizziness, Denies headache(s), Denies loss of vision, Denies memory loss, Denies numbness and Denies tingling Psych Denies anxiety, Denies behavioral changes, Denies depression, Denies memory loss and Denies panic attacks Eliseo/Lymph Denies easy bleeding and Denies easy bruising Aller/Immun Denies wheezing Physical exam (Primary Care) Vital Signs: Last Vital Signs Pulse 70 02/13/23 10:17 BP 122/80 02/13/23 10:17 Pulse Ox 100 02/13/23 10:17 Oxygen Delivery Method Room Air 02/13/23 10:17 BMI result Body Mass Index 21.9 Tobacco/Smoking Status: Tobacco use Status Tobacco use date assessed 12/11/22 02/13/23 10:18 Patient Tobacco Use Status Never used Tobacco 02/13/23 10:18 e-Cigarette/Vaping Use Never Used 02/13/23 10:18 Thrive Assessment: Date of Thrive Assessment Date Thrive assessed 08/12/22 02/13/23 10:18 Const General: healthy appearing, no acute distress, alert and awake Nutritional Appearance: well nourished Orientation/consciousness: oriented to person, oriented to place and oriented to time HENMT Ears: TM's normal bilaterally General nose exam: Normal nasal mucous membranes and turbinates present Eyes Conjunctivae: conjunctivae normal Sclerae: sclerae normal Pupils: Equal, round and reactive pupils present Neck Neck: Yes no lymphadenopathy and Yes no JVD Thyroid: Thyroid normal Carotids: no bruits Resp Effort & Inspection: normal respiratory effort and not tachypneic Auscultation: no crackles, no rales, no rhonchi and no wheezes Cardio Rate: regular rate Rhythm: regular rhythm Heart sounds: no murmurs and normal S1 and S2 GI Palpation (GI): Soft to palpation, nontender, no hepatomegaly and no splenomegaly Auscultation: normal bowel sounds Skin General skin exam: no rashes or lesions noted and dry skin Neuro General: oriented to person, oriented to place and oriented to time Cranial nerves: Yes Equal, round and reactive pupils present Speech: No Abnormal speech present Gait exam (Neuro): Normal gait present Motor exam (neuro): no tremor noted Extrem Right upper extremity: full ROM Left upper extremity: full ROM Right lower extremity: full ROM; no edema Left lower extremity: full ROM; no edema Psych Mental Status: mental status grossly normal Speech and movement: Normal speech and movement present Affect: normal affect Attitude: cooperative Thought process: Normal thought process present Results AMB Hemoglobin A1c AMB Hemoglobin A1c 8.0 % Last Edit by ARIADNE Norton on 02/13/23 10:59 Results Reviewed Results Reviewed: Laboratory Last Values Hgb A1c (Clinic) 8.0 % (4.0-6.0) H 02/13/23 10:16 Assessment and Plan Assessment & Plan (1) T2DM (type 2 diabetes mellitus): Code(s): E11.9 - Type 2 diabetes mellitus without complications Qualifiers: Diabetes mellitus complication status: with hyperglycemia Diabetes mellitus skilled nursing insulin use: without skilled nursing use Qualified Code(s): E11.65 - Type 2 diabetes mellitus with hyperglycemia Plan: Patient's type 2 diabetes suboptimally controlled, today's A1c 8.0. Recently increased his Ozempic to 1 mg. We considered increasing his Ozempic dose though would like to hold off for now.. He would like to work on lifestyle modifications to better control his type 2 diabetes. goal A1c to be below 7.0. (2) Gout: Code(s): M10.9 - Gout, unspecified Qualifiers: Chronicity: chronic Gout etiology: idiopathic Gout site: foot Laterality: unspecified laterality Presence of tophus: without tophus Qualified Code(s): M1A.0790 - Idiopathic chronic gout, unspecified ankle and foot, without tophus (tophi) Plan: Patient continues on allopurinol daily. Had had any recent gout flares. Will recheck uric acid levels (3) HLD (hyperlipidemia): Code(s): E78.5 - Hyperlipidemia, unspecified Qualifiers: Hyperlipidemia type: unspecified Qualified Code(s): E78.5 - Hyperlipidemia, unspecified Plan: Patient continues on statin therapy and gemfibrozil for his triglycerides. Most recent triglycerides at 255. Patient's most recent lipid panel showing LDL slightly above goal. Considered increasing atorvatatin to maximal dose. Patient declines. Like to work on lifestyle modifications to reduce his high cholesterol foods in his diet. Goal LDL to be below 100 (4) HTN (hypertension): Code(s): I10 - Essential (primary) hypertension Qualifiers: Hypertension type: unspecified Qualified Code(s): I10 - Essential (primary) hypertension Plan: Patient's blood pressure acceptable today in office. At this time his blood pressure is managed via lifestyle. Goal blood pressure be below 140/90 Orders: Orders AMB Hemoglobin A1c 02/13/23 E11.9 - Type 2 diabetes mellitus without complications Lipid Panel 02/13/23 E78.5 - Hyperlipidemia, unspecified Uric Acid 02/13/23 [id number].0790 - Idiopathic chronic gout, unspecified ankle and foot, without tophus (tophi) Comprehensive [place]. Panel Fast 02/13/23 E11.65 - Type 2 diabetes mellitus with hyperglycemia Complete Blood Count no Diff 02/13/23 E78.5 - Hyperlipidemia, unspecified Medications: New lancets (OneTouch UltraSoft 2 Lancet) Testing twice a day 100 ea 3RF E11.65 - Type 2 diabetes mellitus with hyperglycemia Changed From blood-glucose meter (OneTouch Verio Meter) As directed 1 ea 0RF E11.65 - Type 2 diabetes mellitus with hyperglycemia To blood-glucose meter Testing twice a day 1 ea 0RF E11.65 - Type 2 diabetes mellitus with hyperglycemia From blood sugar diagnostic (OneTouch Verio test strips) 4x daily 100 ea 6RF E11.65 - Type 2 diabetes mellitus with hyperglycemia To blood sugar diagnostic (OneTouch Verio test strips) 2x daily 100 ea 6RF E11.65 - Type 2 diabetes mellitus with hyperglycemia Coding Level of Care Code Est Pt Level 4 (02536) Diagnoses Type 2 diabetes mellitus with hyperglycemia, without long-term current use of insulin . 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
== END 2023-02-13 10:58 | disposition home or self-care (01) ==
PROVIDERS: PCP Physician Assistant; Visit Provider Physician Assistant
DX: E11.9 Type 2 diabetes mellitus without complications (principal)
CPT/HCPCS: 83036; 99214

== ENCOUNTER 2023-08-27 10:05 | Outpatient (AMB) | payer OTHER, SELFPAY ==
[2023-08-27 10:20] VITALS: BP 112/66; PULSE 75; O2SAT 99; BMI 21.2
--- NOTE | 2023-08-27 10:20 | MHC.PC.OV ---
Vital Signs 08/27/23 10:20 Height 5 ft 2 in Weight 116 lb BMI 21.2 BP 112/66 Blood Pressure Location Lt brachial Position Sitting Pulse 75 Pulse Source Pulse Oximeter Pulse Oximetry (%) 99 Intake Visit Reasons: 4 m follow up/ Med review Intake Note: Patient is here today for a physical. Autotransfusionist Required: No Accompanied by: Spouse Allergies metformin Adverse Reaction (Intermediate, Verified 08/27/23 10:44) urinary frequncy Tobacco use date assessed: 08/27/23 HPI 4 m follow up/ Med review HPI Details Patient is a 58-year-old male here today for an annual physical. ? Patient has a past history significant for type 2 diabetes, idiopathic gout hyperlipidemia, fatty liver disease, hypertension. .. .. DMII:? was previously followed by steaming cabinet tender now has PCP managing diabetes.. Today's A1c elevated at 12.2. Has noted polyuria and polydipsia and some weight loss.. He has not been monitoring his blood sugars at home. He is asking for a continues glucose monitor PLAN: Will continue current Ozempic dose 1 mg, will add daily Lantus at 8 units and up titrate per response. .. Hyperlipidemia; patient continues on atorvastatin 40. Most recent fasting lipid panel showing slight elevation in his LDL. Will recheck fasting lipid panel and if LDL above 100 will consider increasing atorvastatin dose. .. Gout:? Continues on allopurinol 100 mg daily.? Did have a small gout flare last week..? He does use ibuprofen on a p.r.n. basis for joint pain Colonoscopy: Colonoscopy done in 2018 polyp found tubular adenoma repeat 5 years-needs repeat colonoscopy VAccine: Up-to-date with tetanus vaccine, shingles vaccine, COVID vaccine and pneumonia vaccine [facility] Medical History Goiter Type 2 diabetes mellitus with hyperglycemia, without long-term current use of insulin Tubular adenoma of colon Colon cancer screening Urticaria Pain of right thumb Hypogonadism in male Erectile dysfunction Restless legs syndrome HERNANDEZ (nonalcoholic steatohepatitis) Impaired glucose metabolism Hyperlipidemia Hypertriglyceridemia Acute idiopathic gout of left foot Vitamin D deficiency HLD (hyperlipidemia) HTN (hypertension) T2DM (type 2 diabetes mellitus) Surgical History Hx of colonoscopy Hx of vasectomy Family History Father Diabetes CVA (cerebral vascular accident) Mother Diabetes CVD (cardiovascular disease) Breast cancer screening Social History (Updated 08/27/23 @ 10:37 by Guy Salinas PA-C) Household Members: Spouse Housing: House Alcohol intake: current Alcohol intake frequency: holidays/special occasions only Alcohol type: beer Patient Tobacco Use Status: Never used Tobacco e-Cigarette/Vaping Use: Never Used service: No Current occupational status: employed Current occupation: [employer] Cognitive needs: No Hearing needs: No Vision needs: No Questionnaire PHQ-9 Over the last 2 weeks, how often have you been bothered by any of the following problems? 1. Little interest or pleasure in doing things: not at all 2. Feeling down, depressed, or hopeless: not at all 3. Trouble falling or staying asleep, or sleeping too much: not at all 4. Feeling tired or having little energy: not at all 5. Poor appetite or overeating: not at all 6. Feeling bad about yourself - or that you are a failure or have let yourself or your family down: not at all 7. Trouble concentrating on things, such as reading the newspaper or watching television: not at all 8. Moving or speaking so slowly that other people could have noticed. Or the opposite - being so fidgety or restless that you have been moving around a lot more than usual: not at all 9. Thoughts that you would be better off or of hurting yourself in some way: not at all Total score: 0 Depression Screening Interpretation: Negative Depression Screening Done: Yes 88551 - PHQ-9 Billing: Yes Source: Developed by Drs. Oniel Paul, Evelin Wright, Keenan Schmidt and colleagues, with an educational valdez from [employer]. Thrive Questionnaire Date Thrive assessed: 08/27/23 I am a: Patient What is your living situation today?: I have a steady place to live Within the past 12 months, did the food you bought not last and you didn't have the money to get more?: Never true Within the past 12 months, did you worry whether your food would run out before you got money to buy more?: Never true Do you have trouble paying for medicines?: No Do you have trouble getting transportation to medical appointments?: No Do you have trouble paying your heating and electricity bill?: No Do you have trouble taking care of your child, family member or friend?: No Do you have trouble with day-to-day activities such as bathing, preparing meals, shopping, managing finances, etc.?: No Are you currently unemployed and looking for a job?: No Are you interested in more education?: No Please select the resources that you would like help with: None Currently or been in a relationship where the following occur: no concerns reported THRIVE Score: 0 AUDIT C Alcohol Use Questionnaire (AUDIT-C) 1. How often do you have a drink containing alcohol?: Never 3. How often do you have six or more drinks on one occasion?: Never Total Score: 0 PAULA-7 AMB Questionnaire PAULA-7 Date PAULA - 7 assessed: 08/27/23 Feeling nervous, anxious, or on edge: 0 = Not at all Not being able to stop or control worryin = Not at all Worrying too much about different things: 0 = Not at all Trouble relaxin = Not at all Being so restless that it is hard to sit still: 0 = Not at all Becoming easily annoyed or irritable: 0 = Not at all Feeling afraid as if something awful might happen: 0 = Not at all Total PAULA-7 score (0-4 normal; 5-9 mild; 10-14 moderate; 15-21 severe): 0 Source: Developed by Drs. Oniel Paul, Evelin Wright, Keenan Schmidt and colleagues, with an educational valdez from [employer]. PAULA-7 Assessment Billing PAULA-7 Assessment Tool: PAULA-7 Assessment 05982 Review of Systems Const Denies body aches, Denies chills, Denies excessive sweating, Denies fatigue, Denies fever(s) and Denies headache(s) Eyes Denies blurry vision ENT Denies dysphagia, Denies vertigo, Denies dizziness, Denies headache(s), Denies hearing loss and Denies tinnitus Card Denies chest pain, Denies chest pain with activity, Denies syncope, Denies irregular heart rhythm and Denies dyspnea Resp Denies chest congestion, Denies cough, Denies hemoptysis, Denies dyspnea and Denies wheezing GI Denies abdominal pain, Denies melena, Denies hematochezia, Denies coffee ground emesis, Denies dysphagia, Denies diarrhea, Denies nausea and Denies vomiting Denies difficulty urinating, Denies dysuria, Denies urinary frequency, Denies urinary hesitancy and Denies urinary urgency Musc Denies arthralgias, Denies limited range of motion, Denies muscle cramps and Denies muscle weakness Skin/Breast Denies rash and Denies skin ulcer Neuro Denies Abnormal speech present, Denies confusion, Denies vertigo, Denies dizziness, Denies syncope, Denies headache(s), Denies memory loss and Denies seizure-like activity Psych Denies anxiety, Denies confusion, Denies depression, Denies memory loss, Denies panic attacks and Denies paranoia Endo Denies excessive sweating, Denies fatigue, Denies flushing, Denies polydipsia and Denies polyuria Aller/Immun Denies wheezing Physical exam (Primary Care) Vital Signs: Last Vital Signs Pulse 75 08/27/23 10:20 BP 112/66 08/27/23 10:20 Pulse Ox 99 08/27/23 10:20 BMI result Body Mass Index 21.2 Tobacco/Smoking Status: Tobacco use Status Tobacco use date assessed 08/27/23 08/27/23 10:27 Patient Tobacco Use Status Never used Tobacco 08/27/23 10:37 e-Cigarette/Vaping Use Never Used 08/27/23 10:37 PHQ-9: PHQ-9 Score PHQ-9: Total score 0 08/27/23 10:32 Depression Screening Interpretation: Negative Thrive Assessment: Date of Thrive Assessment Date Thrive assessed 08/27/23 08/27/23 10:27 Currently or been in a relationship where the following occur: no concerns reported Const General: cooperative, comfortable, no acute distress, alert and awake; No confusion Orientation/consciousness: oriented to person, oriented to place, patient oriented x3 and No confusion HENMT Head: Yes normocephalic Ears: external ears normal and TM's normal bilaterally Face and sinus: No sinus tenderness Mouth: Normal oral and palatal mucosa present and tongue normal Teeth and gingiva: dentition normal and gingiva normal Throat: Yes posterior oropharynx normal, Yes tonsils normal and Yes uvula midline Eyes Conjunctivae: conjunctivae normal Sclerae: sclerae normal Pupils: Equal, round and reactive pupils present EOM: EOMs intact bilaterally Direct Ophthalmoscopy: No no photophobia Neck Neck: Yes no lymphadenopathy, No tender and Yes no JVD Thyroid: Thyroid normal Carotids: no bruits Chest Chest palpation & inspection: no tenderness Resp Effort & Inspection: normal respiratory effort, no audible wheezes, not labored and no stridor Auscultation: no crackles, no rales, no rhonchi and no wheezes Cardio Jugular venous distension: no JVD Rate: regular rate, not bradycardic and not tachycardic Rhythm: regular rhythm Bruits: no carotid bruits Peripheral pulses: Peripheral pulses 2+ throughout GI Inspection: Yes normal to inspection, No abdominal wall ecchymosis and No visible herniation Palpation (GI): Soft to palpation, nontender, no guarding, not rigid and No hepatosplenomegaly present Auscultation: normoactive bowel sounds General: Yes no CVA tenderness Back/Spine/Pelvis Back: no CVA tenderness and No back tenderness Cervical Spine: cervical ROM normal Thoracic/Lumbar Spine: thoracic and lumbar spine normal to inspection, straight leg raise negative bilaterally, No thoraco-lumbar ROM limited and No lumbar spinal tenderness Skin Lesions: no lesions Rashes: no rashes Wounds: no wounds Neuro General: oriented to person, oriented to place, patient oriented x3, CN's II-XI intact bilaterally and No confusion Cranial nerves: Yes Equal, round and reactive pupils present and Yes Normal accommodation reflex present Cognition (Neuro): normal cognition Speech: No Abnormal speech present Gait exam (Neuro): Normal gait present Motor exam (neuro): 5/5 motor strength present throughout Extrem Right upper extremity: full ROM; no cyanosis Left upper extremity: full ROM; no cyanosis Right lower extremity: no edema Left lower extremity: no edema Psych Appearance: grossly normal Mental Status: mental status grossly normal Affect: normal affect Attitude: cooperative Thought process: Normal thought process present Office Procedures EKG [id number], Complete Results AMB Hemoglobin A1c AMB Hemoglobin A1c 12.1 % Last Edit by ARIADNE Norton on 08/27/23 10:32 Results Reviewed Results Reviewed: Laboratory Last Values Hgb A1c (Clinic) 12.1 % H 08/27/23 10:06 Assessment and Plan Assessment & Plan (1) Annual physical exam: Code(s): Z00.00 - Encounter for general adult medical examination without abnormal findings (2) T2DM (type 2 diabetes mellitus): Code(s): E11.9 - Type 2 diabetes mellitus without complications Qualifiers: Diabetes mellitus ferry terminal supervisor insulin use: without ferry terminal supervisor use Diabetes mellitus complication status: with hyperglycemia Qualified Code(s): E11.65 - Type 2 diabetes mellitus with hyperglycemia Plan: Patient's type 2 diabetes suboptimally controlled, today's A1c at 12.2 from 8.0. Will add on long-acting daily insulin 8 units for better glycemic control. Will continue his current dose of Ozempic and Jardiance. Will follow-up in 3 months to check A1c and if still above 9 will consider endocrinology evaluation and increasing Lantus dose (3) Gout: Code(s): M10.9 - Gout, unspecified Qualifiers: Gout site: foot Gout etiology: idiopathic Chronicity: chronic Laterality: unspecified laterality Presence of tophus: without tophus Qualified Code(s): M1A.0790 - Idiopathic chronic gout, unspecified ankle and foot, without tophus (tophi) Plan: Patient continues on allopurinol daily. Had a small gout flare recently. Will recheck uric acid levels (4) HLD (hyperlipidemia): Code(s): E78.5 - Hyperlipidemia, unspecified Qualifiers: Hyperlipidemia type: unspecified Qualified Code(s): E78.5 - Hyperlipidemia, unspecified Plan: Patient continues on statin therapy and gemfibrozil for his triglycerides. Most recent triglycerides at 255. Patient's most recent lipid panel showing LDL slightly above goal. Considered increasing atorvatatin to maximal dose. Patient declines. Like to work on lifestyle modifications to reduce his high cholesterol foods in his diet. Goal LDL to be below 100 (5) HTN (hypertension): Code(s): I10 - Essential (primary) hypertension Qualifiers: Hypertension type: unspecified Qualified Code(s): I10 - Essential (primary) hypertension Plan: Patient's blood pressure acceptable today in office. At this time his blood pressure is managed via lifestyle. Goal blood pressure be below 140/90 (6) Chest pain: Code(s): R07.9 - Chest pain, unspecified Qualifiers: Chest pain type: unspecified Qualified Code(s): R07.9 - Chest pain, unspecified Plan: EKG in office today showing sinus rhythm and LVH. Orders: Orders Prostate Specific Antigen Scr Today E11.65 - Type 2 diabetes mellitus with hyperglycemia, Z12.5 - Encounter for screening for malignant neoplasm of prostate AMB Hemoglobin A1c Today E11.9 - Type 2 diabetes mellitus without complications AMB EKG-In Office Today R07.9 - Chest pain, unspecified, Z01.818 - Encounter for other preprocedural examination Medications: New blood-glucose sensor (FreeStyle Alexy 3 Sensor device) As directed 1 ea 6RF E11.65 - Type 2 diabetes mellitus with hyperglycemia insulin glargine (Lantus Solostar U-100 Insulin) 8 units (0.08 mL) subcut QAM 30 days 15 mL 1RF E11.65 - Type 2 diabetes mellitus with hyperglycemia blood-glucose meter,continuous (FreeStyle Alexy 3 [place]) As directed 1 ea 0RF E11.65 - Type 2 diabetes mellitus with hyperglycemia Refilled pen needle, diabetic (BD Ultra-Fine Micro Pen Needle) Once a week 50 ea 6RF E11.65 - Type 2 diabetes mellitus with hyperglycemia semaglutide 1 mg (0.75 mL) subcut QWEEK 4 weeks 3 mL 3RF E11.65 - Type 2 diabetes mellitus with hyperglycemia Coding Level of Care Code Est Pt Prev Care 40-64y(37647) Diagnoses Annual physical exam Z00.00 Type 2 diabetes mellitus with hyperglycemia, without long-term current use of insulin E11.65 Diabetes mellitus ferry terminal supervisor insulin use: without assisted use Diabetes mellitus complication status: with hyperglycemia Idiopathic chronic gout of foot without tophus, unspecified laterality M1A.0790 Gout site: foot Gout etiology: idiopathic Chronicity: chronic Laterality: unspecified laterality Presence of tophus: without tophus Hyperlipidemia, unspecified hyperlipidemia type E78.5 Hyperlipidemia type: unspecified Hypertension, unspecified type I10 Hypertension type: unspecified Chest pain, unspecified type R07.9 Chest pain type: unspecified CPT Codes EKG - CPT: 40379-[id number], Complete ([id number]) Additional Codes PAULA-7 Assessment Billing - PAULA-7 Assessment Tool: PAULA-7 Assessment [id number] ([id number])
== END 2023-08-27 11:07 | disposition home or self-care (01) ==
PROVIDERS: PCP Physician Assistant; Visit Provider Physician Assistant
DX: Z00.00 Encounter for general adult medical examination without abnormal findings (principal); E11.65 Type 2 diabetes mellitus with hyperglycemia; E11.69 Type 2 diabetes mellitus with other specified complication; M1A.0790 Idiopathic chronic gout, unspecified ankle and foot, without tophus (tophi); E78.5 Hyperlipidemia, unspecified; I10 Essential (primary) hypertension; R07.9 Chest pain, unspecified
CPT/HCPCS: 83036; 93000; 99396

== ENCOUNTER 2023-09-08 09:52 | Outpatient (REF) | payer OTHER, SELFPAY ==
[2023-09-08 13:01] LABS: Prostate Specific Antigen Scr 1.35 ng/mL (<0.05-4.0)
== END 2023-09-08 09:53 | disposition home or self-care (01) ==
LOC: HO.HHCL 09:52
PROVIDERS: Visit Provider Physician Assistant
DX: Z12.5 Encounter for screening for malignant neoplasm of prostate (principal); E11.65 Type 2 diabetes mellitus with hyperglycemia
CPT/HCPCS: 36415; 84153

== ENCOUNTER 2023-11-24 09:55 | Outpatient (AMB) | payer OTHER, SELFPAY ==
[2023-11-24 10:17] VITALS: BP 108/74; PULSE 82; O2SAT 99; BMI 21.6
--- NOTE | 2023-11-24 10:17 | A.OFFPC_ITS ---
Vital Signs 11/24/23 10:17 Height 5 ft 2 in Weight 118 lb 1 oz BMI 21.6 BP 108/74 Blood Pressure Location Lt brachial Position Sitting Pulse 82 Pulse Source Pulse Oximeter Pulse Oximetry (%) 99 Oxygen Delivery Method Room Air Intake Visit Reasons: f/u DMII/ HLD Animal Anatomist Required: No Accompanied by: Self / Same As Patient Allergies metformin Adverse Reaction (Intermediate, Verified 11/24/23 10:32) urinary frequncy Medication List - Last Reconciled 11/24/23 by Guy Salinas PA-C atorvastatin 40 mg PO DAILY blood sugar diagnostic (Fusion Coolant SystemsTouch Verio test strips) 2x daily blood sugar diagnostic 4x daily blood-glucose meter Testing twice a day blood-glucose meter,continuous (FreeStyle Alexy 3 [place]) As directed blood-glucose sensor (FreeStyle Alexy 3 Sensor device) As directed cholecalciferol (vitamin D3) 25 mcg PO DAILY empagliflozin 25 mg PO QAM 90 days gemfibrozil 600 mg PO BID insulin glargine (Lantus Solostar U-100 Insulin) 8 units (0.08 mL) subcut QAM 30 days lancets As directed lancets As directed lancets ([employer] UltraSoft 2 Lancet) Testing twice a day pen needle, diabetic (BD Ultra-Fine Micro Pen Needle) Once a week semaglutide 1 mg (0.75 mL) subcut QWEEK 4 weeks tadalafil (Cialis) 20 mg PO DAILY PRN 10 days Tobacco use date assessed: 08/27/23 Dental Screening Dental Screen Date: 11/24/23 Did you have a dental visit in the last 12 months?: Yes Did you have a dental problem in the last 6 months where you did not have access to dental care?: No Was dental information given to patient?: Patient has dentist HPI f/u DMII/ HLD HPI Details Patient is a 58-year-old male here today for a follow-up visit ? Patient has a past history significant for type 2 diabetes, idiopathic gout hyperlipidemia, fatty liver disease, hypertension. .. .. DMII:? Patient's type 2 diabetes has been better control, A1c today is 6.8 from 12.2. He was recently started on Lantus 8 units daily. He does report having 2 episodes of hypoglycemia to which recently corrected with orange juice. He has been intermittently using a continues glucose monitor which has been helpful on controlling his sugars as well. = .. Hyperlipidemia; patient continues on atorvastatin 40. Most recent fasting lipid panel showing slight elevation in his LDL. Will recheck fasting lipid panel and if LDL above 100 will consider increasing atorvastatin dose. .. Gout:? Continues on allopurinol 100 mg daily.? Did have a small gout flare last week..? He does use ibuprofen on a p.r.n. basis for joint pain. He does report he works 12 hour work day shifts and is interested in some accommodations on reducing his daily work hours to 8 hours per day due to his lower extremity neuropathy in gout related pain. Written note for work for his accommodations. [facility] Medical History Goiter Type 2 diabetes mellitus with hyperglycemia, without long-term current use of insulin Tubular adenoma of colon Colon cancer screening Urticaria Pain of right thumb Hypogonadism in male Erectile dysfunction Restless legs syndrome HERNANDEZ (nonalcoholic steatohepatitis) Impaired glucose metabolism Hyperlipidemia Hypertriglyceridemia Acute idiopathic gout of left foot Vitamin D deficiency HLD (hyperlipidemia) HTN (hypertension) T2DM (type 2 diabetes mellitus) Surgical History Hx of colonoscopy Hx of vasectomy Family History Father Diabetes CVA (cerebral vascular accident) Mother Diabetes CVD (cardiovascular disease) Breast cancer screening Social History Household Members: Spouse Housing: House Alcohol intake: current Alcohol intake frequency: holidays/special occasions only Alcohol type: beer Patient Tobacco Use Status: Never used Tobacco e-Cigarette/Vaping Use: Never Used service: No Current occupational status: employed Current occupation: [employer] Cognitive needs: No Hearing needs: No Vision needs: No Questionnaire Thrive Questionnaire Date Thrive assessed: 08/27/23 PAULA-7 AMB Questionnaire PAULA-7 Date PAULA - 7 assessed: 08/27/23 Source: Developed by Drs. Oniel Paul, Evelin Wright, Keenan Schmidt and colleagues, with an educational valdez from [employer] Review of Systems Const Denies headache(s) Eyes Denies loss of vision ENT Denies vertigo, Denies dizziness, Denies headache(s) and Denies sore throat Card Denies chest pain, Denies leg edema and Denies lightheadedness Resp Denies cough, Denies hemoptysis and Denies wheezing GI Denies abdominal pain, Denies melena, Denies constipation, Denies diarrhea and Denies vomiting Denies dysuria, Denies urinary frequency and Denies urinary urgency Musc Denies arthralgias, Denies joint swelling, Denies numbness and Denies tingling Neuro Denies Abnormal speech present, Denies behavioral changes, Denies vertigo, Denies dizziness, Denies headache(s), Denies loss of vision, Denies memory loss, Denies numbness and Denies tingling Psych Denies anxiety, Denies behavioral changes, Denies depression, Denies memory loss and Denies panic attacks Eliseo/Lymph Denies easy bleeding and Denies easy bruising Aller/Immun Denies wheezing Physical exam (Primary Care) Vital Signs: Last Vital Signs Pulse 82 11/24/23 10:17 BP 108/74 11/24/23 10:17 Pulse Ox 99 11/24/23 10:17 Oxygen Delivery Method Room Air 11/24/23 10:17 BMI result Body Mass Index 21.6 Tobacco/Smoking Status: Tobacco use Status Tobacco use date assessed 08/27/23 11/24/23 10:18 Patient Tobacco Use Status Never used Tobacco 11/24/23 10:18 e-Cigarette/Vaping Use Never Used 11/24/23 10:18 Thrive Assessment: Date of Thrive Assessment Date Thrive assessed 08/27/23 11/24/23 10:18 Const General: healthy appearing, no acute distress, alert and awake Nutritional Appearance: well nourished Orientation/consciousness: oriented to person, oriented to place and oriented to time HENMT Ears: TM's normal bilaterally General nose exam: Normal nasal mucous membranes and turbinates present Eyes Conjunctivae: conjunctivae normal Sclerae: sclerae normal Pupils: Equal, round and reactive pupils present Neck Neck: Yes no lymphadenopathy and Yes no JVD Thyroid: Thyroid normal Carotids: no bruits Resp Effort & Inspection: normal respiratory effort and not tachypneic Auscultation: no crackles, no rales, no rhonchi and no wheezes Cardio Rate: regular rate Rhythm: regular rhythm Heart sounds: no murmurs and normal S1 and S2 GI Palpation (GI): Soft to palpation, nontender, no hepatomegaly and no splenomegaly Auscultation: normal bowel sounds Skin General skin exam: no rashes or lesions noted and dry skin Neuro General: oriented to person, oriented to place and oriented to time Cranial nerves: Yes Equal, round and reactive pupils present Speech: No Abnormal speech present Gait exam (Neuro): Normal gait present Motor exam (neuro): no tremor noted Extrem Right upper extremity: full ROM Left upper extremity: full ROM Right lower extremity: full ROM; no edema Left lower extremity: full ROM; no edema Psych Mental Status: mental status grossly normal Speech and movement: Normal speech and movement present Affect: normal affect Attitude: cooperative Thought process: Normal thought process present Results AMB Hemoglobin A1c AMB Hemoglobin A1c 6.8 % Last Edit by ARIADNE Norton on 11/24/23 10:37 Results Reviewed Results Reviewed: Laboratory Last Values Hgb A1c (Clinic) 6.8 % (4.0-6.0) H 11/24/23 10:18 Assessment and Plan Assessment & Plan (1) T2DM (type 2 diabetes mellitus): Code(s): E11.9 - Type 2 diabetes mellitus without complications Qualifiers: Diabetes mellitus complication status: with hyperglycemia Diabetes mellitus assistant terminal manager insulin use: without assistant terminal manager use Qualified Code(s): E11.65 - Type 2 diabetes mellitus with hyperglycemia Plan: Patient's type 2 diabetes now well controlled with A1c at 6.8 from 12.2. We did add on long-acting insulin 8 units which seems to have been helpful. He does report having 2 episodes of hypoglycemia over the last 6 months which were easily corrected with orange juice.. Will continue his current dose of Ozempic and Jardiance. Goal A1c is to remain below 7.0 (2) Gout: Code(s): M10.9 - Gout, unspecified Qualifiers: Chronicity: chronic Gout etiology: idiopathic Gout site: foot Laterality: unspecified laterality Presence of tophus: without tophus Qualified Code(s): M1A.0790 - Idiopathic chronic gout, unspecified ankle and foot, without tophus (tophi) Plan: Patient continues on allopurinol daily. Had a small gout flare recently. Will recheck uric acid levels (3) HLD (hyperlipidemia): Code(s): E78.5 - Hyperlipidemia, unspecified Qualifiers: Hyperlipidemia type: unspecified Qualified Code(s): E78.5 - Hyperlipidemia, unspecified Plan: Patient continues on statin therapy and gemfibrozil for his triglycerides. Most recent triglycerides at 255. Patient's most recent lipid panel showing LDL slightly above goal. Considered increasing atorvatatin to maximal dose. Patient declines. Like to work on lifestyle modifications to reduce his high cholesterol foods in his diet. Goal LDL to be below 100 (4) HTN (hypertension): Code(s): I10 - Essential (primary) hypertension Qualifiers: Hypertension type: unspecified Qualified Code(s): I10 - Essential (primary) hypertension Plan: Patient's blood pressure acceptable today in office. At this time his blood pressure is managed via lifestyle. Goal blood pressure be below 140/90 (5) Right sided sciatica: Code(s): M54.31 - Sciatica, right side Plan: Does report often having right sided lower back pain with radiculopathy. He does do his own home stretches would are helpful. We did speak about pain management referral and is considering for pain reduction modality. Orders: Orders Lipid Panel 11/24/23 E78.5 - Hyperlipidemia, unspecified Vitamin D 25-OH Total 11/24/23 E55.9 - Vitamin D deficiency, unspecified Comprehensive [place]. Panel Fast 11/24/23.65 - Type 2 diabetes mellitus with hyperglycemia Microalbumin, Random (w Creat) 11/24/23.65 - Type 2 diabetes mellitus with hyperglycemia AMB Hemoglobin A1c 11/24/23.65 - Type 2 diabetes mellitus with hyperglycemia Complete Blood Count no Diff 11/24/23.65 - Type 2 diabetes mellitus with hyperglycemia Uric Acid 11/24/23 M1A.0790 - Idiopathic chronic gout, unspecified ankle and foot, without tophus (tophi) Medications: New ropinirole administer 1-3 hours before bedtime 1 mg PO BEDTIME 90 tabs 1RF 90 days G25.81 - Restless legs syndrome Refilled atorvastatin 40 mg PO DAILY 90 tabs 1RF E78.5 - Hyperlipidemia, unspecified gemfibrozil 600 mg PO BID 180 tabs 1RF E11.65 - Type 2 diabetes mellitus with hyperglycemia empagliflozin 25 mg PO QAM 90 tabs 2RF 90 days E11.65 - Type 2 diabetes mellitus with hyperglycemia Patient Instructions: Goal: A1c to remain below 7.0 Barrier: Adherence to physical activity and healthy eating habits Coding Level of Care Code Est Pt Level 4 (55629) Complex EM visit Add On G2211 Diagnoses Type 2 diabetes mellitus with hyperglycemia, without long-term current use of insulin E11.65 Diabetes mellitus complication status: with hyperglycemia Diabetes mellitus assistant terminal manager insulin use: without assistant terminal manager use Idiopathic chronic gout of foot without tophus, unspecified laterality M1A.0790 Chronicity: chronic Gout etiology: idiopathic Gout site: foot Laterality: unspecified laterality Presence of tophus: without tophus Hyperlipidemia, unspecified hyperlipidemia type E78.5 Hyperlipidemia type: unspecified Hypertension, unspecified type I10 Hypertension type: unspecified Right sided sciatica M54.31
== END 2023-11-24 10:56 | disposition home or self-care (01) ==
PROVIDERS: PCP Physician Assistant; Visit Provider Physician Assistant
DX: E11.65 Type 2 diabetes mellitus with hyperglycemia (principal)
CPT/HCPCS: 83036; 99214; G2211

== ENCOUNTER 2023-12-19 08:16 | Outpatient (REF) | payer OTHER, SELFPAY ==
[2023-12-19 10:23] LABS: Hematocrit 45.4 % (42.0-52.0); Hemoglobin 15.9 g/dl (14.0-18.0); Mean Corpuscular Hemoglobin 32.4 pg (27.0-33.0); Mean Corpuscular Volume 92.5 fL (80.0-98.0); Mean Platelet Volume 10.5 fL (9.4-12.4); Platelet Count 146 X10*3/uL (160-400); Red Blood Count 4.91 X10*6/uL (4.60-5.80); Red Cell Distribution Width 12.4 % (11.0-16.0)
[2023-12-19 16:47] LABS: Anion Gap 16 (12-20); Blood Urea Nitrogen 16 mg/dL (9-16); Calcium 9.8 mg/dL (8.4-10.2); Carbon Dioxide 26 mmol/L (22-29); Chloride 106 mmol/L (96-108); Estimated Glomerular Filt Rate > 60; Glucose Fasting 154 mg/dL (60-99); Potassium 4.6 mmol/L (3.3-5.1); Sodium 143 mmol/L (135-145); Uric Acid 6.5 mg/dL (3.4-7.0)
[2023-12-19 16:48] LABS: Alanine Aminotransferase 41 U/L (0-40); Albumin Level 4.5 g/dL (3.5-5.0); Alkaline Phosphatase 105 U/L (39-117); Aspartate Amino Transferase 26 U/L (5-37); Bilirubin Total 0.5 mg/dL (0.0-1.0); Cholesterol 223 mg/dL (<200); HDL Cholesterol 43 mg/dL (>40); LDL Cholesterol Calculated 104 mg/dL (<100); Total Protein 7.6 g/dL (6.5-8.0); Triglycerides 381 mg/dL (<150); Vitamin D 25-OH Total 26.2 ng/mL (>30)
[2023-12-19 20:33] LABS: Creatinine Urine 75.61 mg/dL; Microalbum/Creatinine Ratio Ur 44.9 ug/mg cr (<30)
== END 2023-12-19 08:17 | disposition home or self-care (01) ==
LOC: HO.LAB 08:16
PROVIDERS: PCP Physician Assistant; Visit Provider Physician Assistant
DX: E55.9 Vitamin D deficiency, unspecified (principal); E11.65 Type 2 diabetes mellitus with hyperglycemia; M1A.0790 Idiopathic chronic gout, unspecified ankle and foot, without tophus (tophi); E78.5 Hyperlipidemia, unspecified
CPT/HCPCS: 36415; 80053; 80061; 82043; 82306; 82570; 84550; 85027

== ENCOUNTER 2024-05-24 10:49 | Outpatient (AMB) | payer OTHER, SELFPAY ==
[2024-05-24 10:55] VITALS: BP 122/70; PULSE 80; O2SAT 99; BMI 21.4
--- NOTE | 2024-05-24 10:55 | MHC.PC.OV ---
Vital Signs 05/24/24 10:55 Height 5 ft 2 in Weight 117 lb 2 oz BMI 21.4 BP 122/70 Blood Pressure Location Lt brachial Position Sitting Pulse 80 Pulse Source Pulse Oximeter Pulse Oximetry (%) 99 Oxygen Delivery Method Room Air Intake Visit Reasons: 6 Month F/U Operator/Assistant Foreman Required: No Accompanied by: Self / Same As Patient Allergies metformin Adverse Reaction (Intermediate, Verified 05/24/24 10:56) urinary frequncy Medication List - Last Reconciled 05/24/24 by Guy Salinas PA-C atorvastatin 80 mg PO DAILY blood sugar diagnostic (Platinum Software CorporationTouch Verio test strips) 2x daily blood sugar diagnostic 4x daily blood-glucose meter Testing twice a day blood-glucose meter,continuous (FreeStyle Alexy 3 [place]) As directed blood-glucose sensor (FreeStyle Alexy 3 Sensor device) As directed blood-glucose sensor (FreeStyle Alexy 3 Plus Sensor device) As directed cholecalciferol (vitamin D3) 25 mcg PO DAILY empagliflozin 25 mg PO QAM 90 days gemfibrozil 600 mg PO BID insulin glargine (Lantus Solostar U-100 Insulin) 8 units (0.08 mL) subcut QAM 30 days lancets As directed lancets As directed lancets ([employer]atinum Software CorporationTouch UltraSoft 2 Lancet) Testing twice a day meclizine 25 mg PO BID PRN 14 days pen needle, diabetic (BD Ultra-Fine Micro Pen Needle) Once a week ropinirole 1 mg PO BEDTIME 90 days semaglutide 1 mg (0.75 mL) subcut QWEEK 4 weeks tadalafil (Cialis) 20 mg PO DAILY PRN 10 days Tobacco use date assessed: 08/27/23 Dental Screening Dental Screen Date: 11/24/23 HPI 6 Month F/U HPI Details Patient is a 59-year-old male here today for a follow-up visit ? Patient has a past history significant for type 2 diabetes, idiopathic gout hyperlipidemia, fatty liver disease, hypertension. .. .. DMII:? Patient's type 2 diabetes suboptimally controlled has today's A1c above 9. Does admit to some dietary indiscretion over the holidays. PLAN: Will increase his Lantus dose to 12 units daily. He continues with once a week GLP 1 injection as well. = .. Hyperlipidemia; patient continues on atorvastatin 40. Most recent fasting lipid panel showing slight elevation in his LDL. Will recheck fasting lipid panel and if LDL above 100 will consider increasing atorvastatin dose. .. Gout:? Continues on allopurinol 100 mg daily.? ..? He does use ibuprofen on a p.r.n. basis for joint pain. He does work accommodations due to his foot pain secondary to gout and also has FMLA. Laboratory Tests 10/15/22 02/13/23 08/27/23 11:30 10:16 10:06 Hgb A1c (Clinic) 8.0 H 12.1 H Hemoglobin A1c % 8.9 Cholesterol 189 LDL Cholesterol, C alc 106 PSA Screen 25-OH Vitamin D To apolinar 09/08/23 11/24/23 12/19/23 09:56 10:18 08:58 Hgb A1c (Clinic) 6.8 H Hemoglobin A1c % Cholesterol 223 H LDL Cholesterol, C alc 104 H PSA Screen 1.35 25-OH Vitamin D To apolinar 26.2 PFSH Medical History Goiter Type 2 diabetes mellitus with hyperglycemia, without long-term current use of insulin Tubular adenoma of colon Colon cancer screening Urticaria Pain of right thumb Hypogonadism in male Erectile dysfunction Restless legs syndrome HERNANDEZ (nonalcoholic steatohepatitis) Impaired glucose metabolism Hyperlipidemia Hypertriglyceridemia Acute idiopathic gout of left foot Vitamin D deficiency HLD (hyperlipidemia) HTN (hypertension) T2DM (type 2 diabetes mellitus) Surgical History Hx of colonoscopy Hx of vasectomy Family History Father Diabetes CVA (cerebral vascular accident) Mother Diabetes CVD (cardiovascular disease) Breast cancer screening Social History Household Members: Spouse Housing: House Alcohol intake: current Alcohol intake frequency: holidays/special occasions only Alcohol type: beer Patient Tobacco Use Status: Never used Tobacco e-Cigarette/Vaping Use: Never Used service: No Current occupational status: employed Current occupation: [employer] Cognitive needs: No Hearing needs: No Vision needs: No Questionnaire Thrive Questionnaire Date Thrive assessed: 08/27/23 PAULA-7 AMB Questionnaire PAULA-7 Date PAULA - 7 assessed: 08/27/23 Source: Developed by Drs. Oniel Paul, Evelin Wright, Keenan Schmidt and colleagues, with an educational valdez from [employer]. Review of Systems Const Denies headache(s) Eyes Denies loss of vision ENT Denies vertigo, Denies dizziness, Denies headache(s) and Denies sore throat Card Denies chest pain, Denies leg edema and Denies lightheadedness Resp Denies cough, Denies hemoptysis and Denies wheezing GI Denies abdominal pain, Denies melena, Denies constipation, Denies diarrhea and Denies vomiting Denies dysuria, Denies urinary frequency and Denies urinary urgency Musc Denies arthralgias, Denies joint swelling, Denies numbness and Denies tingling Neuro Denies Abnormal speech present, Denies behavioral changes, Denies vertigo, Denies dizziness, Denies headache(s), Denies loss of vision, Denies memory loss, Denies numbness and Denies tingling Psych Denies anxiety, Denies behavioral changes, Denies depression, Denies memory loss and Denies panic attacks Eliseo/Lymph Denies easy bleeding and Denies easy bruising Aller/Immun Denies wheezing Physical exam (Primary Care) Vital Signs: Last Vital Signs Pulse 80 05/24/24 10:55 BP 122/70 05/24/24 10:55 Pulse Ox 99 05/24/24 10:55 Oxygen Delivery Method Room Air 05/24/24 10:55 BMI result Body Mass Index 21.4 Tobacco/Smoking Status: Tobacco use Status Tobacco use date assessed 08/27/23 05/24/24 10:55 Patient Tobacco Use Status Never used Tobacco 05/24/24 10:55 e-Cigarette/Vaping Use Never Used 05/24/24 10:55 Thrive Assessment: Date of Thrive Assessment Date Thrive assessed 08/27/23 05/24/24 10:55 Const General: healthy appearing, no acute distress, alert and awake Nutritional Appearance: well nourished Orientation/consciousness: oriented to person, oriented to place and oriented to time HENMT Ears: TM's normal bilaterally General nose exam: Normal nasal mucous membranes and turbinates present Eyes Conjunctivae: conjunctivae normal Sclerae: sclerae normal Pupils: Equal, round and reactive pupils present Neck Neck: Yes no lymphadenopathy and Yes no JVD Thyroid: Thyroid normal Carotids: no bruits Resp Effort & Inspection: normal respiratory effort and not tachypneic Auscultation: no crackles, no rales, no rhonchi and no wheezes Cardio Rate: regular rate Rhythm: regular rhythm Heart sounds: no murmurs and normal S1 and S2 GI Palpation (GI): Soft to palpation, nontender, no hepatomegaly and no splenomegaly Auscultation: normal bowel sounds Skin General skin exam: no rashes or lesions noted and dry skin Neuro General: oriented to person, oriented to place and oriented to time Cranial nerves: Yes Equal, round and reactive pupils present Speech: No Abnormal speech present Gait exam (Neuro): Normal gait present Motor exam (neuro): no tremor noted Extrem Right upper extremity: full ROM Left upper extremity: full ROM Right lower extremity: full ROM; no edema Left lower extremity: full ROM; no edema Psych Mental Status: mental status grossly normal Speech and movement: Normal speech and movement present Affect: normal affect Attitude: cooperative Thought process: Normal thought process present Office Procedures Flu Questionnaire Does the patient have a severe egg allergy?: No Results AMB Hemoglobin A1c AMB Hemoglobin A1c 9.8 % Last Edit by ARIADNE Norton on 05/24/24 15:27 Immunizations Fluarix Triv [id number] (PF) 45 mcg (15 mcg x 3)/0.5 mL IM syringe Performing Provider: Guy Salinas PA-C [facility] Documented (not given) by: ARIADNE Norton on 05/24/24 11:02 Reason Not Given: Patient Refused Results Reviewed Results Reviewed: Laboratory Last Values Hgb A1c (Clinic) 9.8 % (4.0-6.0) H 05/24/24 11:02 Coding Level of Care Code Est Pt Level 4 (82964) Diagnoses Type 2 diabetes mellitus with hyperglycemia, without long-term current use of insulin E11.65 Diabetes mellitus complication status: with hyperglycemia Diabetes mellitus care home insulin use: without equipment operator intermodal yard use Hyperlipidemia, unspecified hyperlipidemia type E78.5 Hyperlipidemia type: unspecified Hypertension, unspecified type I10 Hypertension type: unspecified Idiopathic chronic gout of foot without tophus, unspecified laterality M1A.0790 Chronicity: chronic Gout etiology: idiopathic Gout site: foot Laterality: unspecified laterality Presence of tophus: without tophus Nonalcoholic steatohepatitis (HERNANDEZ) K75.81 Assessment & Plan Assessment & Plan (1) T2DM (type 2 diabetes mellitus): Code(s): E11.9 - Type 2 diabetes mellitus without complications Category: Medical Qualifiers: Diabetes mellitus complication status: with hyperglycemia Diabetes mellitus equipment operator intermodal yard insulin use: without equipment operator intermodal yard use Qualified Code(s): E11.65 - Type 2 diabetes mellitus with hyperglycemia Plan: Patient's type 2 diabetes suboptimally controlled with today's A1c at 9.8. Will increase his Lantus to 12 units for better glycemic control. He does admit to some dietary indiscretion. Goal A1c is to be below 7.0 (2) HLD (hyperlipidemia): Code(s): E78.5 - Hyperlipidemia, unspecified Category: Medical Qualifiers: Hyperlipidemia type: unspecified Qualified Code(s): E78.5 - Hyperlipidemia, unspecified Plan: Patient's most recent lipid panel showing excellent control of his total cholesterol and LDL. Will continue his current dose of statin therapy with goal LDL to remain below 100 (3) HTN (hypertension): Code(s): I10 - Essential (primary) hypertension Category: Medical Qualifiers: Hypertension type: unspecified Qualified Code(s): I10 - Essential (primary) hypertension Plan: Patient's blood pressure acceptable today in office. Goal blood pressures to remain below 140/90 (4) Gout: Code(s): M10.9 - Gout, unspecified Category: Medical Qualifiers: Chronicity: chronic Gout etiology: idiopathic Gout site: foot Laterality: unspecified laterality Presence of tophus: without tophus Qualified Code(s): M1A.0790 - Idiopathic chronic gout, unspecified ankle and foot, without tophus (tophi) Plan: Patient reports his gout has been fairly well controlled. He does report feeling numbness and burning from time to time in his foot. Will continue to follow uric acid levels. (5) Nonalcoholic steatohepatitis (HERNANDEZ): Code(s): K75.81 - Nonalcoholic steatohepatitis (HERNANDEZ) Category: Medical Plan: Patient was followed by gastroenterology. He does history of nonalcoholic fatty liver. He continues on medication which has helped stabilize his liver enzymes. Orders: Orders Lipid Panel 05/24/24 E78.5 - Hyperlipidemia, unspecified Complete Blood Count no Diff 05/24/24 I10 - Essential (primary) hypertension AMB Hemoglobin A1c 05/24/24 E11.65 - Type 2 diabetes mellitus with hyperglycemia Influenza [id number] Immunization 05/24/24 Z23 - Encounter for immunization Vitamin D 25-OH Total 05/24/24 E55.9 - Vitamin D deficiency, unspecified Microalbumin, Random (w Creat) 05/24/24 I10 - Essential (primary) hypertension Comprehensive [place]. Panel Fast 05/24/24 I10 - Essential (primary) hypertension Hemoglobin A1c 05/24/24 E11.65 - Type 2 diabetes mellitus with hyperglycemia Uric Acid 05/24/24 M1A.0790 - Idiopathic chronic gout, unspecified ankle and foot, without tophus (tophi) Medications: New pentoxifylline ER must administer with a meal/food 400 mg PO BID 90 days 180 tabs 3RF K75.81 - Nonalcoholic steatohepatitis (HERNANDEZ) Changed From insulin glargine (Lantus Solostar U-100 Insulin) 8 units (0.08 mL) subcut QAM 30 days 15 mL 1RF E11.65 - Type 2 diabetes mellitus with hyperglycemia To insulin glargine (Lantus Solostar U-100 Insulin) 12 units (0.12 mL) subcut QAM 30 days 15 mL 1RF E11.65 - Type 2 diabetes mellitus with hyperglycemia Refilled meclizine 25 mg PO BID 14 days PRN 28 tabs 0RF dizziness E11.65 - Type 2 diabetes mellitus with hyperglycemia ropinirole administer 1-3 hours before bedtime 1 mg PO BEDTIME 90 days 90 tabs 1RF G25.81 - Restless legs syndrome semaglutide 1 mg (0.75 mL) subcut QWEEK 4 weeks 3 mL 3RF E11.65 - Type 2 diabetes mellitus with hyperglycemia
== END 2024-05-24 11:12 | disposition home or self-care (01) ==
PROVIDERS: PCP Physician Assistant; Visit Provider Physician Assistant
DX: E11.65 Type 2 diabetes mellitus with hyperglycemia (principal); E78.5 Hyperlipidemia, unspecified; I10 Essential (primary) hypertension; M1A.0790 Idiopathic chronic gout, unspecified ankle and foot, without tophus (tophi); K75.81 Nonalcoholic steatohepatitis (NASH)

== ENCOUNTER → 2024-05-24 10:49 | Outpatient (BNVA) | payer OTHER, SELFPAY | PROVIDERS: PCP Physician Assistant; Visit Provider Physician Assistant | DX: E11.65 Type 2 diabetes mellitus with hyperglycemia (principal); E78.5 Hyperlipidemia, unspecified; I10 Essential (primary) hypertension; M1A.0790 Idiopathic chronic gout, unspecified ankle and foot, without tophus (tophi); K75.81 Nonalcoholic steatohepatitis (NASH); Z79.4 Long term (current) use of insulin; Z79.899 Other long term (current) drug therapy; Z28.21 Immunization not carried out because of patient refusal | CPT/HCPCS: 83036; 90471 ==

== ENCOUNTER 2024-11-15 09:34 | Outpatient (REF) | payer OTHER, SELFPAY ==
[2024-11-15 10:35] LABS: Hematocrit 45.8 % (42.0-52.0); Hemoglobin 16.5 g/dl (14.0-18.0); Mean Corpuscular Hemoglobin 32.5 pg (27.0-33.0); Mean Corpuscular Volume 90.2 fL (80.0-98.0); Mean Platelet Volume 10.5 fL (9.4-12.4); Platelet Count 167 X10*3/uL (160-400); Red Blood Count 5.08 X10*6/uL (4.60-5.80); Red Cell Distribution Width 11.8 % (11.0-16.0); White Blood Count 6.6 X10*3/uL (4.8-10.8)
[2024-11-15 10:42] LABS: Estimated Average Glucose 306 mg/dL; Hemoglobin A1c % 12.3 % (<6.0)
[2024-11-15 11:04] LABS: Alanine Aminotransferase 86 U/L (0-40); Albumin Level 4.7 g/dL (3.5-5.0); Alkaline Phosphatase 146 U/L (39-117); Anion Gap 16 (12-20); Aspartate Amino Transferase 68 U/L (5-37); Bilirubin Total 0.7 mg/dL (0.0-1.0); Blood Urea Nitrogen 18 mg/dL (9-16); Calcium 9.9 mg/dL (8.4-10.2); Carbon Dioxide 27 mmol/L (22-29); Chloride 102 mmol/L (96-108); Cholesterol 272 mg/dL (<200); Estimated Glomerular Filt Rate > 60; Glucose Fasting 293 mg/dL (60-99); HDL Cholesterol 36 mg/dL (>40); Potassium 3.9 mmol/L (3.3-5.1); Sodium 141 mmol/L (135-145); Total Protein 7.9 g/dL (6.5-8.0); Triglycerides 598 mg/dL (<150); Uric Acid 5.8 mg/dL (3.4-7.0)
[2024-11-15 11:22] LABS: Vitamin D 25-OH Total 19.4 ng/mL (>30)
[2024-11-15 12:07] LABS: Creatinine Urine 74.32 mg/dL; Microalbum/Creatinine Ratio Ur 36.3 ug/mg cr (<30)
== END 2024-11-15 09:35 | disposition home or self-care (01) ==
LOC: HO.LAB 09:34
PROVIDERS: PCP Physician Assistant; Visit Provider Physician Assistant
DX: E78.5 Hyperlipidemia, unspecified (principal); E11.65 Type 2 diabetes mellitus with hyperglycemia; I10 Essential (primary) hypertension; M1A.0790 Idiopathic chronic gout, unspecified ankle and foot, without tophus (tophi); E55.9 Vitamin D deficiency, unspecified
CPT/HCPCS: 36415; 80053; 80061; 82043; 82306; 82570; 83036; 84550; 85027

== ENCOUNTER 2024-11-22 10:09 | Outpatient (AMB) | payer OTHER, SELFPAY ==
[2024-11-22 10:10] VITALS: BP 128/82; PULSE 64; TEMP 36.2; O2SAT 99; BMI 20.6
--- NOTE | 2024-11-22 10:10 | MHC.PC.OV ---
Vital Signs 11/22/24 10:10 Height 5 ft 2 in Weight 112 lb 6 oz BMI 20.6 BP 128/82 Blood Pressure Location Lt brachial Position Sitting Pulse 64 Pulse Source Pulse Oximeter Temp 97.1 F Temp Source Temporal Artery Scan Pulse Oximetry (%) 99 Oxygen Delivery Method Room Air Intake Visit Reasons: 6 Months f/u Manager Visual Required: No Accompanied by: Self / Same As Patient Allergies metformin Adverse Reaction (Intermediate, Verified 11/22/24 10:36) urinary frequncy Medication List - Last Reconciled 11/22/24 by Guy Salinas PA-C atorvastatin 80 mg PO DAILY blood sugar diagnostic (Greengate PowerTouch Verio test strips) 2x daily blood sugar diagnostic 4x daily blood-glucose meter Testing twice a day blood-glucose sensor (FreeStyle Alexy 3 Plus Sensor device) As directed blood-glucose sensor (FreeStyle Alexy 3 Sensor device) As directed blood-glucose,french comber,cont (FreeStyle Alexy 3 [place]) As directed cholecalciferol (vitamin D3) 25 mcg PO DAILY empagliflozin 25 mg PO QAM 90 days gemfibrozil 600 mg PO BID insulin glargine (Lantus Solostar U-100 Insulin) 12 units (0.12 mL) subcut QAM 30 days lancets As directed lancets As directed lancets (Greengate PowerTouch UltraSoft 2 Lancet) Testing twice a day meclizine 25 mg PO BID PRN 14 days pen needle, diabetic (BD Ultra-Fine Micro Pen Needle) Once a week pentoxifylline ER 400 mg PO BID 90 days promethazine 12.5 mg PO TID PRN 7 days ropinirole 1 mg PO BEDTIME 90 days semaglutide 1 mg (0.75 mL) subcut QWEEK 4 weeks tadalafil (Cialis) 20 mg PO DAILY PRN 10 days Tobacco use date assessed: 11/22/24 Dental Screening Dental Screen Date: 11/22/24 Did you have a dental visit in the last 12 months?: Yes Did you have a dental problem in the last 6 months where you did not have access to dental care?: No Was dental information given to patient?: Patient has dentist HPI 6 Months f/u HPI Details Patient is a 59-year-old male here today for a follow-up visit ? Patient has a past history significant for type 2 diabetes, idiopathic gout hyperlipidemia, fatty liver disease, hypertension. .. .. DMII:? Patient's type 2 diabetes suboptimally controlled has today's A1c above 12. Does admit to some dietary indiscretion over the last few months. He does report her metformin has caused him GI side effects PLAN: Will increase his Lantus dose to 20 units daily, will add additional preprandial insulin for better glycemic control. He continues with once a week GLP 1 injection as well. = .. Hyperlipidemia; patient continues on atorvastatin 40. . Noted elevated triglycerides likely secondary to his hyperglycemia. Will recheck fasting lipid panel and if LDL above 100 will consider increasing atorvastatin dose. .. Gout:? Continues on allopurinol 100 mg daily.? ..? He does use ibuprofen on a p.r.n. basis for joint pain. He does work accommodations due to his foot pain secondary to gout and also has FMLA. Laboratory Tests 12/19/23 11/15/24 11/15/24 08:58 09:42 09:43 RBC 5.08 Fasting Glucose 293 H Hemoglobin A1c % 12.3 H Triglycerides 598 H 25-OH Vitamin D To apolinar 19.4 L Urine Microalbumin 34.0 27.0 PFSH Medical History Goiter Type 2 diabetes mellitus with hyperglycemia, without long-term current use of insulin Tubular adenoma of colon Colon cancer screening Urticaria Pain of right thumb Hypogonadism in male Erectile dysfunction Restless legs syndrome HERNANDEZ (nonalcoholic steatohepatitis) Impaired glucose metabolism Hyperlipidemia Hypertriglyceridemia Acute idiopathic gout of left foot Vitamin D deficiency HLD (hyperlipidemia) HTN (hypertension) T2DM (type 2 diabetes mellitus) Surgical History Hx of colonoscopy Hx of vasectomy Family History Father Diabetes CVA (cerebral vascular accident) Mother Diabetes CVD (cardiovascular disease) Breast cancer screening Social History Household Members: Spouse Housing: House Alcohol intake: current Alcohol intake frequency: holidays/special occasions only Alcohol type: beer Patient Tobacco Use Status: Never used Tobacco e-Cigarette/Vaping Use: Never Used service: No Current occupational status: employed Current occupation: [employer] Cognitive needs: No Hearing needs: No Vision needs: No Questionnaire PHQ-9 Over the last 2 weeks, how often have you been bothered by any of the following problems? 1. Little interest or pleasure in doing things: not at all 2. Feeling down, depressed, or hopeless: not at all 3. Trouble falling or staying asleep, or sleeping too much: not at all 4. Feeling tired or having little energy: not at all 5. Poor appetite or overeating: not at all 6. Feeling bad about yourself - or that you are a failure or have let yourself or your family down: not at all 7. Trouble concentrating on things, such as reading the newspaper or watching television: not at all 8. Moving or speaking so slowly that other people could have noticed. Or the opposite - being so fidgety or restless that you have been moving around a lot more than usual: not at all 9. Thoughts that you would be better off or of hurting yourself in some way: not at all Total score: 0 Depression Screening Interpretation: Negative Depression Screening Done: Yes 20390 - PHQ-9 Billing: Yes Source: Developed by Drs. Oniel Paul, Evelin Wright, Keenan Schmidt and colleagues, with an educational valdez from [employer]. Thrive Questionnaire Date Thrive assessed: 11/22/24 I am a: Patient What is your living situation today?: I have a steady place to live Within the past 12 months, did the food you bought not last and you didn't have the money to get more?: Never true Within the past 12 months, did you worry whether your food would run out before you got money to buy more?: Never true Do you have trouble paying for medicines?: No Do you have trouble getting transportation to medical appointments?: No Do you have trouble paying your heating and electricity bill?: Yes Do you have trouble taking care of your child, family member or friend?: No Do you have trouble with day-to-day activities such as bathing, preparing meals, shopping, managing finances, etc.?: No Are you currently unemployed and looking for a job?: No Are you interested in more education?: No Please select the resources that you would like help with: None Currently or been in a relationship where the following occur: I choose not to answer THRIVE Score: 1 AUDIT C Alcohol Use Questionnaire (AUDIT-C) 1. How often do you have a drink containing alcohol?: Never 3. How often do you have six or more drinks on one occasion?: Never Total Score: 0 PAULA-7 AMB Questionnaire PAULA-7 Date PAULA - 7 assessed: 11/22/24 Feeling nervous, anxious, or on edge: 0 = Not at all Not being able to stop or control worryin = Not at all Worrying too much about different things: 0 = Not at all Trouble relaxin = Not at all Being so restless that it is hard to sit still: 0 = Not at all Becoming easily annoyed or irritable: 0 = Not at all Feeling afraid as if something awful might happen: 0 = Not at all Total PAULA-7 score (0-4 normal; 5-9 mild; 10-14 moderate; 15-21 severe): 0 Source: Developed by Drs. Oniel Paul, Evelin Wright, Keenan Schmidt and colleagues, with an educational valdez from [employer]. PAULA-7 Assessment Billing PAULA-7 Assessment Tool: PAULA-7 Assessment 68948 Review of Systems Const Denies headache(s) Eyes Denies loss of vision ENT Denies vertigo, Denies dizziness, Denies headache(s) and Denies sore throat Card Denies chest pain, Denies leg edema and Denies lightheadedness Resp Denies cough, Denies hemoptysis and Denies wheezing GI Denies abdominal pain, Denies melena, Denies constipation, Denies diarrhea and Denies vomiting Denies dysuria, Denies urinary frequency and Denies urinary urgency Musc Denies arthralgias, Denies joint swelling, Denies numbness and Denies tingling Neuro Denies Abnormal speech present, Denies behavioral changes, Denies vertigo, Denies dizziness, Denies headache(s), Denies loss of vision, Denies memory loss, Denies numbness and Denies tingling Psych Denies anxiety, Denies behavioral changes, Denies depression, Denies memory loss and Denies panic attacks Eliseo/Lymph Denies easy bleeding and Denies easy bruising Aller/Immun Denies wheezing Physical exam (Primary Care) Vital Signs: Last Vital Signs Temp 97.1 F 11/22/24 10:10 Pulse 64 11/22/24 10:10 BP 128/82 11/22/24 10:10 Pulse Ox 99 11/22/24 10:10 Oxygen Delivery Method Room Air 11/22/24 10:10 BMI result Body Mass Index 20.6 Tobacco/Smoking Status: Tobacco use Status Tobacco use date assessed 11/22/24 11/22/24 10:19 Patient Tobacco Use Status Never used Tobacco 11/22/24 10:11 e-Cigarette/Vaping Use Never Used 11/22/24 10:11 PHQ-9: PHQ-9 Score PHQ-9: Total score 0 11/23/24 07:56 Depression Screening Interpretation: Negative Thrive Assessment: Date of Thrive Assessment Date Thrive assessed 11/22/24 11/22/24 10:11 Currently or been in a relationship where the following occur: I choose not to answer Const General: healthy appearing, no acute distress, alert and awake Nutritional Appearance: well nourished Orientation/consciousness: oriented to person, oriented to place and oriented to time HENMT Ears: TM's normal bilaterally General nose exam: Normal nasal mucous membranes and turbinates present Eyes Conjunctivae: conjunctivae normal Sclerae: sclerae normal Pupils: Equal, round and reactive pupils present Neck Neck: Yes no lymphadenopathy and Yes no JVD Thyroid: Thyroid normal Carotids: no bruits Resp Effort & Inspection: normal respiratory effort and not tachypneic Auscultation: no crackles, no rales, no rhonchi and no wheezes Cardio Rate: regular rate Rhythm: regular rhythm Heart sounds: no murmurs and normal S1 and S2 GI Palpation (GI): Soft to palpation, nontender, no hepatomegaly and no splenomegaly Auscultation: normal bowel sounds Skin General skin exam: no rashes or lesions noted and dry skin Neuro General: oriented to person, oriented to place and oriented to time Cranial nerves: Yes Equal, round and reactive pupils present Speech: No Abnormal speech present Gait exam (Neuro): Normal gait present Motor exam (neuro): no tremor noted Extrem Right upper extremity: full ROM Left upper extremity: full ROM Right lower extremity: full ROM; no edema Left lower extremity: full ROM; no edema Psych Mental Status: mental status grossly normal Speech and movement: Normal speech and movement present Affect: normal affect Attitude: cooperative Thought process: Normal thought process present Coding Level of Care Code Est Pt Level 4 (56392) Diagnoses Type 2 diabetes mellitus with hyperglycemia, without long-term current use of insulin E11.65 Diabetes mellitus complication status: with hyperglycemia Diabetes mellitus manager long term care insulin use: without manager long term care use Hyperlipidemia, unspecified hyperlipidemia type E78.5 Hyperlipidemia type: unspecified Hypertension, unspecified type I10 Hypertension type: unspecified Idiopathic chronic gout of foot without tophus, unspecified laterality M1A.0790 Chronicity: chronic Gout etiology: idiopathic Gout site: foot Laterality: unspecified laterality Presence of tophus: without tophus Nonalcoholic steatohepatitis (HERNANDEZ) K75.81 Additional Codes PAULA-7 Assessment Billing - PAULA-7 Assessment Tool: PAULA-7 Assessment 87366 ([id number]) PHQ-9 - 71772 - PHQ-9 Billing: Yes ([id number]) Assessment & Plan Assessment & Plan (1) T2DM (type 2 diabetes mellitus): Code(s): E11.9 - Type 2 diabetes mellitus without complications Category: Medical Qualifiers: Diabetes mellitus complication status: with hyperglycemia Diabetes mellitus manager long term care insulin use: without fdc use Qualified Code(s): E11.65 - Type 2 diabetes mellitus with hyperglycemia Plan: Patient's type 2 diabetes suboptimally controlled with today's A1c at 12.3. Will increase his Lantus to 20 units for better glycemic control. Will also had preprandial short-acting insulin. He does admit to some dietary indiscretion. Goal A1c is to be below 7.0 (2) HLD (hyperlipidemia): Code(s): E78.5 - Hyperlipidemia, unspecified Category: Medical Qualifiers: Hyperlipidemia type: unspecified Qualified Code(s): E78.5 - Hyperlipidemia, unspecified Plan: Most recent fasting lipid panel showing abnormalities in total cholesterol and triglycerides LDL can not be calculated. Will try to capture glycemic control then recheck his fasting lipid panel. For now will continue current dose of statin therapy.. Will continue his current dose of statin therapy with goal LDL to remain below 100 (3) HTN (hypertension): Code(s): I10 - Essential (primary) hypertension Category: Medical Qualifiers: Hypertension type: unspecified Qualified Code(s): I10 - Essential (primary) hypertension Plan: Patient's blood pressure acceptable today in office. Goal blood pressures to remain below 140/90 (4) Gout: Code(s): M10.9 - Gout, unspecified Category: Medical Qualifiers: Chronicity: chronic Gout etiology: idiopathic Gout site: foot Laterality: unspecified laterality Presence of tophus: without tophus Qualified Code(s): M1A.0790 - Idiopathic chronic gout, unspecified ankle and foot, without tophus (tophi) Plan: Patient reports his gout has been fairly well controlled. He does report feeling numbness and burning from time to time in his foot. Will continue to follow uric acid levels. (5) Nonalcoholic steatohepatitis (HERNANDEZ): Code(s): K75.81 - Nonalcoholic steatohepatitis (HERNANDEZ) Category: Medical Plan: Patient was followed by gastroenterology. He does history of nonalcoholic fatty liver. He continues on medication which has helped stabilize his liver enzymes. Orders: Orders Complete Blood Count no Diff 11/22/24 - Type 2 diabetes mellitus with hyperglycemia Comprehensive [place]. Panel Fast 11/22/24 - Type 2 diabetes mellitus with hyperglycemia Hemoglobin A1c 11/22/24 - Type 2 diabetes mellitus with hyperglycemia Medications: New insulin lispro (Humalog KwikPen (U-100) Insulin) 5 units (0.05 mL) subcut TID 15 mL 1RF 30 days - Type 2 diabetes mellitus with hyperglycemia Changed From pen needle, diabetic (BD Ultra-Fine Micro Pen Needle) Once a week 50 ea 6RF - Type 2 diabetes mellitus with hyperglycemia To pen needle, diabetic daily 50 ea 6RF - Type 2 diabetes mellitus with hyperglycemia From insulin glargine (Lantus Solostar U-100 Insulin) 12 units (0.12 mL) subcut QAM 30 days 15 mL 1RF - Type 2 diabetes mellitus with hyperglycemia To insulin glargine (Lantus Solostar U-100 Insulin) 20 units (0.2 mL) subcut QAM 6 mL 1RF 30 days - Type 2 diabetes mellitus with hyperglycemia Refilled blood-glucose sensor (FreeStyle Alexy 3 Sensor device) As directed 1 ea 6RF - Type 2 diabetes mellitus with hyperglycemia
== END 2024-11-22 10:51 | disposition home or self-care (01) ==
LOC: HO.HMCH 10:10
PROVIDERS: PCP Physician Assistant; Visit Provider Physician Assistant
DX: E11.65 Type 2 diabetes mellitus with hyperglycemia (principal); E78.5 Hyperlipidemia, unspecified; I10 Essential (primary) hypertension; M1A.0790 Idiopathic chronic gout, unspecified ankle and foot, without tophus (tophi); K75.81 Nonalcoholic steatohepatitis (NASH)

== ENCOUNTER → 2024-11-22 10:09 | Outpatient (BNVA) | payer OTHER, SELFPAY | PROVIDERS: PCP Physician Assistant; Visit Provider Physician Assistant | DX: I10 Essential (primary) hypertension (principal); E78.5 Hyperlipidemia, unspecified; E11.65 Type 2 diabetes mellitus with hyperglycemia; M1A.0790 Idiopathic chronic gout, unspecified ankle and foot, without tophus (tophi); K75.81 Nonalcoholic steatohepatitis (NASH); Z79.4 Long term (current) use of insulin | CPT/HCPCS: 96127 ==

== ENCOUNTER 2024-12-29 12:49 | Outpatient (AMB) | payer OTHER, SELFPAY ==
--- NOTE | 2024-12-29 12:53 | MHC.PC.OV ---
Vital Signs 12/29/24 12:55 Height 5 ft 1.42 in Weight 116 lb 2 oz BMI 21.6 BP 110/68 Blood Pressure Location Rt brachial Position Sitting Pulse 89 Pulse Source Pulse Oximeter Temp 97.2 F Temp Source Temporal Artery Scan Pulse Oximetry (%) 97 Oxygen Delivery Method Room Air Intake Visit Reasons: follow up/discuss leg concern Intake Note: Patient is here to follow up on discuss left leg and right hand concern. Tar Heater Operator Required: No Silverer: Not Required per policy Accompanied by: Self / Same As Patient Allergies metformin Adverse Reaction (Intermediate, Verified 12/29/24 13:09) urinary frequncy Medication List - Last Reconciled 12/29/24 by Guy Salinas PA-C atorvastatin 80 mg PO DAILY blood sugar diagnostic (SIFTSORT.COMTouch Verio test strips) 2x daily blood-glucose meter Testing twice a day blood-glucose sensor (Zin.glStyle Alexy 3 Plus Sensor device) As directed blood-glucose,clinical exercise physiologist,cont (FreeStyle Alexy 3 [place]) As directed cholecalciferol (vitamin D3) 25 mcg PO DAILY empagliflozin 25 mg PO QAM 90 days gemfibrozil 600 mg PO BID insulin glargine (Lantus Solostar U-100 Insulin) 20 units (0.2 mL) subcut QAM 30 days insulin lispro (Humalog KwikPen (U-100) Insulin) 5 units (0.05 mL) subcut TID 30 days lancets (SIFTSORT.COMTouch UltraSoft 2 Lancet) Testing twice a day meclizine 25 mg PO BID PRN 14 days pen needle, diabetic daily pentoxifylline ER 400 mg PO BID 90 days promethazine 12.5 mg PO TID PRN 7 days ropinirole 1 mg PO BEDTIME 90 days semaglutide 1 mg (0.75 mL) subcut QWEEK 4 weeks tadalafil (Cialis) 20 mg PO DAILY PRN 10 days Tobacco use date assessed: 12/29/24 Dental Screening Dental Screen Date: 11/22/24 HPI follow up/discuss leg concern HPI Details The patient is a 59-year-old male presenting with a tremor in his right hand. The tremor has been present for approximately four months and is more noticeable when the patient is at rest or holding objects, such as a phone. The patient's partner has also observed the tremor, which prompted further discussion. The patient reports a sensation in his arm, described as tingling, which is located on the back of the elbow and arm. This sensation is suspected to be related to a nerve issue, possibly neuropathy. The patient has a family history of Parkinson's disease, with an uncle currently diagnosed and hospitalized with the condition. [facility] Medical History Goiter Type 2 diabetes mellitus with hyperglycemia, without long-term current use of insulin Tubular adenoma of colon Colon cancer screening Urticaria Pain of right thumb Hypogonadism in male Erectile dysfunction Restless legs syndrome HERNANDEZ (nonalcoholic steatohepatitis) Impaired glucose metabolism Hyperlipidemia Hypertriglyceridemia Acute idiopathic gout of left foot Vitamin D deficiency HLD (hyperlipidemia) HTN (hypertension) T2DM (type 2 diabetes mellitus) Surgical History Hx of colonoscopy Hx of vasectomy Family History Father Diabetes CVA (cerebral vascular accident) Mother Diabetes CVD (cardiovascular disease) Breast cancer screening Social History Household Members: Spouse Housing: House Alcohol intake: current Alcohol intake frequency: holidays/special occasions only Alcohol type: beer Patient Tobacco Use Status: Never used Tobacco e-Cigarette/Vaping Use: Never Used Second Hand Smoke Exposure: No service: No Current occupational status: employed Current occupation: [employer] Cognitive needs: No Hearing needs: No Vision needs: No Questionnaire Thrive Questionnaire Date Thrive assessed: 11/22/24 I am a: Patient What is your living situation today?: I have a steady place to live Within the past 12 months, did the food you bought not last and you didn't have the money to get more?: Never true Within the past 12 months, did you worry whether your food would run out before you got money to buy more?: Never true Do you have trouble paying for medicines?: No Do you have trouble getting transportation to medical appointments?: No Do you have trouble paying your heating and electricity bill?: Yes Do you have trouble taking care of your child, family member or friend?: No Do you have trouble with day-to-day activities such as bathing, preparing meals, shopping, managing finances, etc.?: No Are you currently unemployed and looking for a job?: No Are you interested in more education?: No Please select the resources that you would like help with: None Currently or been in a relationship where the following occur: I choose not to answer THRIVE Score: 1 PAULA-7 AMB Questionnaire PAULA-7 Date PAULA - 7 assessed: 11/22/24 Source: Developed by Drs. Oniel Paul, Evelin Wright, Keenan Schmidt and colleagues, with an educational valdez from [employer]. Review of Systems Const Denies headache(s) Eyes Denies loss of vision ENT Denies vertigo, Denies dizziness, Denies headache(s) and Denies sore throat Card Denies chest pain, Denies leg edema and Denies lightheadedness Resp Denies cough, Denies hemoptysis and Denies wheezing GI Denies abdominal pain, Denies melena, Denies constipation, Denies diarrhea and Denies vomiting Denies dysuria, Denies urinary frequency and Denies urinary urgency Musc Denies arthralgias, Denies joint swelling, Denies numbness and Denies tingling Neuro Denies Abnormal speech present, Denies behavioral changes, Denies vertigo, Denies dizziness, Denies headache(s), Denies loss of vision, Denies memory loss, Denies numbness and Denies tingling Psych Denies anxiety, Denies behavioral changes, Denies depression, Denies memory loss and Denies panic attacks Eliseo/Lymph Denies easy bleeding and Denies easy bruising Aller/Immun Denies wheezing Physical exam (Primary Care) Vital Signs: Last Vital Signs Temp 97.2 F 12/29/24 12:55 Pulse 89 12/29/24 12:55 BP 110/68 12/29/24 12:55 Pulse Ox 97 12/29/24 12:55 Oxygen Delivery Method Room Air 12/29/24 12:55 BMI result Body Mass Index 21.6 Tobacco/Smoking Status: Tobacco use Status Tobacco use date assessed 12/29/24 12/29/24 12:55 Patient Tobacco Use Status Never used Tobacco 12/29/24 12:55 e-Cigarette/Vaping Use Never Used 12/29/24 12:55 Thrive Assessment: Date of Thrive Assessment Date Thrive assessed 11/22/24 12/29/24 12:55 Currently or been in a relationship where the following occur: I choose not to answer Const General: healthy appearing, no acute distress, alert and awake Nutritional Appearance: well nourished Orientation/consciousness: oriented to person, oriented to place and oriented to time HENMT Ears: TM's normal bilaterally General nose exam: Normal nasal mucous membranes and turbinates present Eyes Conjunctivae: conjunctivae normal Sclerae: sclerae normal Pupils: Equal, round and reactive pupils present Neck Neck: Yes no lymphadenopathy and Yes no JVD Thyroid: Thyroid normal Carotids: no bruits Resp Effort & Inspection: normal respiratory effort and not tachypneic Auscultation: no crackles, no rales, no rhonchi and no wheezes Cardio Rate: regular rate Rhythm: regular rhythm Heart sounds: no murmurs and normal S1 and S2 GI Palpation (GI): Soft to palpation, nontender, no hepatomegaly and no splenomegaly Auscultation: normal bowel sounds Skin General skin exam: no rashes or lesions noted and dry skin Neuro General: oriented to person, oriented to place and oriented to time Cranial nerves: Yes Equal, round and reactive pupils present Speech: No Abnormal speech present Gait exam (Neuro): Normal gait present Motor exam (neuro): no tremor noted Extrem Right upper extremity: full ROM Left upper extremity: full ROM Right lower extremity: full ROM; no edema Left lower extremity: full ROM; no edema Psych Mental Status: mental status grossly normal Speech and movement: Normal speech and movement present Affect: normal affect Attitude: cooperative Thought process: Normal thought process present Coding Level of Care Code Est Pt Level 4 (89676) Diagnoses Resting tremor G25.2 Paresthesia of hand, bilateral R20.2 Assessment & Plan Assessment & Plan (1) Resting tremor: Code(s): G25.2 - Other specified forms of tremor Category: Medical Plan: The patient will be started on Primidone 50 mg at night to manage the tremor. A neurology referral will be made to further evaluate the tremor and rule out Parkinson's disease, given the family history. (2) Paresthesia of hand, bilateral: Code(s): R20.2 - Paresthesia of skin Category: Medical Plan: Nerve conduction studies will be ordered to assess for potential neuropathy, such as carpal tunnel syndrome or cubital tunnel syndrome. Orders: Orders NE electromyogram (EMG) Today R20.2 - Paresthesia of skin NE nerve conduction velocity Today R20.2 - Paresthesia of skin Referrals Neurology Referral G25.2 - Other specified forms of tremor Medications: New primidone 50 mg PO BEDTIME 30 tabs 0RF 30 days G25.2 - Other specified forms of tremor Refilled ropinirole administer 1-3 hours before bedtime 1 mg PO BEDTIME 90 tabs 1RF 90 days G25.81 - Restless legs syndrome blood sugar diagnostic (SIFTSORT.COMTouch Verio test strips) 2x daily 100 ea 6RF E11.65 - Type 2 diabetes mellitus with hyperglycemia lancets (SIFTSORT.COMTouch UltraSoft 2 Lancet) Testing twice a day 100 ea 3RF E11.65 - Type 2 diabetes mellitus with hyperglycemia blood-glucose sensor (FreeStyle Alexy 3 Plus Sensor device) As directed 2 ea 6RF E11.65 - Type 2 diabetes mellitus with hyperglycemia
[2024-12-29 12:55] VITALS: BP 110/68; PULSE 89; TEMP 36.2; O2SAT 97; BMI 21.6
== END 2024-12-29 13:22 | disposition home or self-care (01) ==
LOC: HO.HMCH 12:50
PROVIDERS: PCP Physician Assistant; Visit Provider Physician Assistant
DX: G25.2 Other specified forms of tremor (principal); R20.2 Paresthesia of skin

== ENCOUNTER 2025-02-01 08:15 | Outpatient (REF) | payer OTHER, SELFPAY ==
--- NOTE | 2025-02-01 08:21 | EMG_ITS ---
Bilateral median and ulnar motor and sensory studies were performed bilateral radial sensory study was performed and bilateral median and lateral antecubital brachial sensory studies were performed. EMG needle examination was performed. Impression: 1. Pale-em-wkftzjcs right and mild left median neuropathy across carpal tunnel 2. Esio-sw-jqwgigox right and mild left ulnar neuropathy across cubital tunnel MTDD
== END 2025-02-01 08:16 | disposition home or self-care (01) ==
LOC: HO.NEURO 08:15
PROVIDERS: PCP Physician Assistant; Visit Provider Physician Assistant
DX: R20.2 Paresthesia of skin (principal)
CPT/HCPCS: 95886; 95913

== ENCOUNTER → 2025-02-01 08:21 | Outpatient (BNV) | payer OTHER, SELFPAY | PROVIDERS: PCP Physician Assistant; Visit Provider Psychiatry & Neurology Neurology | DX: G56.03 Carpal tunnel syndrome, bilateral upper limbs (principal); G56.23 Lesion of ulnar nerve, bilateral upper limbs | CPT/HCPCS: 95886; 95912 ==

== ENCOUNTER 2025-02-23 10:12 | Outpatient (AMB) | payer OTHER, SELFPAY ==
--- NOTE | 2025-02-23 10:47 | MHC.PC.OV ---
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 Accompanied by: Self / Same As Patient Allergies metformin Adverse Reaction (Intermediate, Verified 02/23/25 11:08) urinary frequncy Medication List - Last Reconciled 02/23/25 by Guy Salinas PA-C atorvastatin 80 mg PO DAILY blood sugar diagnostic (Splick.itTouch Verio test strips) 2x daily blood-glucose meter Testing twice a day blood-glucose sensor (Medical Referral SourceStyle Alexy 3 Plus Sensor device) As directed blood-glucose,care coordination manager,cont (FreeStyle Alexy 3 [place]) As directed cholecalciferol (vitamin D3) 25 mcg PO DAILY empagliflozin 25 mg PO QAM 90 days gemfibrozil 600 mg PO BID insulin glargine (Lantus Solostar U-100 Insulin) 20 units (0.2 mL) subcut QAM 30 days insulin lispro (Humalog KwikPen (U-100) Insulin) 5 units (0.05 mL) subcut TID 30 days lancets (Splick.itTouch UltraSoft 2 Lancet) Testing twice a day meclizine 25 mg PO BID PRN 14 days pen needle, diabetic daily pentoxifylline ER 400 mg PO BID 90 days primidone 50 mg PO BEDTIME 30 days promethazine 12.5 mg PO TID PRN 7 days ropinirole 1 mg PO BEDTIME 90 days semaglutide 1 mg (0.75 mL) subcut QWEEK 4 weeks tadalafil (Cialis) 20 mg PO DAILY PRN 10 days Tobacco use date assessed: 02/23/25 Dental Screening Dental Screen Date: 02/23/25 Did you have a dental visit in the last 12 months?: Yes Did you have a dental problem in the last 6 months where you did not have access to dental care?: No Was dental information given to patient?: Patient has dentist HPI f/u DMII HPI Details Patient is a 60-year-old male here today for a follow-up visit ? Patient has a past history significant for type 2 diabetes, idiopathic gout hyperlipidemia, fatty liver disease, hypertension. .. Carpal tunnel syndrome: Recent EMG testing showing bilateral moderate carpal tunnel and cubital tunnel syndrome. Will be following up with Orthopedics about possible treatment. .. .. DMII:? Patient's type 2 diabetes suboptimally controlled, today's A1c at 9.9 from 12. Does admit to some dietary indiscretion over the last few months. He has not been able to tolerate metformin due to GI side effects PLAN: Will tighten up his preprandial insulin scale and increase his Lantus dose to 24 units .. Resting tremor: Has tried primidone though had side effect of fatigue and lethargy.. We have referred him to Neurology = .. Hyperlipidemia; patient continues on atorvastatin 40. . Noted elevated triglycerides likely secondary to his hyperglycemia. Will recheck fasting lipid panel and if LDL above 100 will consider increasing atorvastatin dose. .. Gout:? Continues on allopurinol 100 mg daily.? ..? He does use ibuprofen on a p.r.n. basis for joint pain. He does work accommodations due to his foot pain secondary to gout and also has FMLA. Laboratory Tests 05/24/24 11/15/24 11:02 09:43 Fasting Glucose 293 H Hgb A1c (Clinic) 9.8 H Hemoglobin A1c % 12.3 H AST 68 H ALT 86 H Triglycerides 598 H Cholesterol 272 H PFSH Medical History Goiter Type 2 diabetes mellitus with hyperglycemia, without long-term current use of insulin Tubular adenoma of colon Colon cancer screening Urticaria Pain of right thumb Hypogonadism in male Erectile dysfunction Restless legs syndrome HERNANDEZ (nonalcoholic steatohepatitis) Impaired glucose metabolism Hyperlipidemia Hypertriglyceridemia Acute idiopathic gout of left foot Vitamin D deficiency HLD (hyperlipidemia) HTN (hypertension) T2DM (type 2 diabetes mellitus) Surgical History Hx of colonoscopy Hx of vasectomy Family History Father Diabetes CVA (cerebral vascular accident) Mother Diabetes CVD (cardiovascular disease) Breast cancer screening Social History Household Members: Spouse Housing: House Alcohol intake: current Alcohol intake frequency: holidays/special occasions only Alcohol type: beer Patient Tobacco Use Status: Never used Tobacco e-Cigarette/Vaping Use: Never Used Second Hand Smoke Exposure: No service: No Current occupational status: employed Current occupation: [employer] Cognitive needs: No Hearing needs: No Vision needs: No Questionnaire Thrive Questionnaire Date Thrive assessed: 11/22/24 I am a: Patient What is your living situation today?: I have a steady place to live Within the past 12 months, did the food you bought not last and you didn't have the money to get more?: Never true Within the past 12 months, did you worry whether your food would run out before you got money to buy more?: Never true Do you have trouble paying for medicines?: No Do you have trouble getting transportation to medical appointments?: No Do you have trouble paying your heating and electricity bill?: Yes Do you have trouble taking care of your child, family member or friend?: No Do you have trouble with day-to-day activities such as bathing, preparing meals, shopping, managing finances, etc.?: No Are you currently unemployed and looking for a job?: No Are you interested in more education?: No Please select the resources that you would like help with: None Currently or been in a relationship where the following occur: I choose not to answer THRIVE Score: 1 AUDIT C Alcohol Use Questionnaire (AUDIT-C) 1. How often do you have a drink containing alcohol?: Never 3. How often do you have six or more drinks on one occasion?: Never Total Score: 0 PAULA-7 AMB Questionnaire PAULA-7 Date PAULA - 7 assessed: 11/22/24 Source: Developed by Drs. Oniel Paul, Evelin Wright, Keenan Schmidt and colleagues, with an educational valdez from [employer]. Review of Systems Const Denies headache(s) Eyes Denies loss of vision ENT Denies vertigo, Denies dizziness, Denies headache(s) and Denies sore throat Card Denies chest pain, Denies leg edema and Denies lightheadedness Resp Denies cough, Denies hemoptysis and Denies wheezing GI Denies abdominal pain, Denies melena, Denies constipation, Denies diarrhea and Denies vomiting Denies dysuria, Denies urinary frequency and Denies urinary urgency Musc Denies arthralgias, Denies joint swelling, Denies numbness and Denies tingling Neuro Denies Abnormal speech present, Denies behavioral changes, Denies vertigo, Denies dizziness, Denies headache(s), Denies loss of vision, Denies memory loss, Denies numbness and Denies tingling Psych Denies anxiety, Denies behavioral changes, Denies depression, Denies memory loss and Denies panic attacks Eliseo/Lymph Denies easy bleeding and Denies easy bruising Aller/Immun Denies wheezing Physical exam (Primary Care) Vital Signs: Last Vital Signs Pulse 74 02/23/25 10:48 BP 118/76 02/23/25 10:48 Pulse Ox 98 02/23/25 10:48 Oxygen Delivery Method Room Air 02/23/25 10:48 BMI result Body Mass Index 21.1 Tobacco/Smoking Status: Tobacco use Status Tobacco use date assessed 02/23/25 02/23/25 10:50 Patient Tobacco Use Status Never used Tobacco 02/23/25 10:48 e-Cigarette/Vaping Use Never Used 02/23/25 10:48 Thrive Assessment: Date of Thrive Assessment Date Thrive assessed 11/22/24 02/23/25 10:48 Currently or been in a relationship where the following occur: I choose not to answer Const General: healthy appearing, no acute distress, alert and awake Nutritional Appearance: well nourished Orientation/consciousness: oriented to person, oriented to place and oriented to time HENMT Ears: TM's normal bilaterally General nose exam: Normal nasal mucous membranes and turbinates present Eyes Conjunctivae: conjunctivae normal Sclerae: sclerae normal Pupils: Equal, round and reactive pupils present Neck Neck: Yes no lymphadenopathy and Yes no JVD Thyroid: Thyroid normal Carotids: no bruits Resp Effort & Inspection: normal respiratory effort and not tachypneic Auscultation: no crackles, no rales, no rhonchi and no wheezes Cardio Rate: regular rate Rhythm: regular rhythm Heart sounds: no murmurs and normal S1 and S2 GI Palpation (GI): Soft to palpation, nontender, no hepatomegaly and no splenomegaly Auscultation: normal bowel sounds Skin General skin exam: no rashes or lesions noted and dry skin Neuro General: oriented to person, oriented to place and oriented to time Cranial nerves: Yes Equal, round and reactive pupils present Speech: No Abnormal speech present Gait exam (Neuro): Normal gait present Motor exam (neuro): no tremor noted Extrem Right upper extremity: full ROM Left upper extremity: full ROM Right lower extremity: full ROM; no edema Left lower extremity: full ROM; no edema Psych Mental Status: mental status grossly normal Speech and movement: Normal speech and movement present Affect: normal affect Attitude: cooperative Thought process: Normal thought process present Coding Level of Care Code Est Pt Level 4 (49793) Diagnoses Resting tremor G25.2 Type 2 diabetes mellitus with hyperglycemia, without long-term current use of insulin E11.65 Diabetes mellitus detention insulin use: without adjunct faculty for medical terminology use Diabetes mellitus complication status: with hyperglycemia Hyperlipidemia, unspecified hyperlipidemia type E78.5 Hyperlipidemia type: unspecified Hypertension, unspecified type I10 Hypertension type: unspecified Nonalcoholic steatohepatitis (HERNANDEZ) K75.81 Left median nerve neuropathy G56.12 Assessment & Plan Assessment & Plan (1) Resting tremor: Code(s): G25.2 - Other specified forms of tremor Category: Medical Plan: We referred patient's Neurology though has not able to establish an appointment. Have tried primidone 50 mg though had side effect of lethargy and fatigue. (2) T2DM (type 2 diabetes mellitus): Code(s): E11.9 - Type 2 diabetes mellitus without complications Category: Medical Qualifiers: Diabetes mellitus adjunct faculty for medical terminology insulin use: without detention use Diabetes mellitus complication status: with hyperglycemia Qualified Code(s): E11.65 - Type 2 diabetes mellitus with hyperglycemia Plan: Patient's type 2 diabetes suboptimally controlled as today's A1c at 9.9 from 12.3. Will increase his Lantus dose 24 units and tightened up his preprandial insulin dose. Goal A1c is to be below 7.0 (3) HLD (hyperlipidemia): Code(s): E78.5 - Hyperlipidemia, unspecified Category: Medical Qualifiers: Hyperlipidemia type: unspecified Qualified Code(s): E78.5 - Hyperlipidemia, unspecified Plan: Most recent fasting lipid panel showing abnormalities in total cholesterol and triglycerides LDL can not be calculated. Will try to capture glycemic control then recheck his fasting lipid panel. For now will continue current dose of statin therapy.. Will continue his current dose of statin therapy with goal LDL to remain below 100 (4) HTN (hypertension): Code(s): I10 - Essential (primary) hypertension Category: Medical Qualifiers: Hypertension type: unspecified Qualified Code(s): I10 - Essential (primary) hypertension Plan: Patient's blood pressure acceptable today in office. Goal blood pressures to remain below 140/90 (5) Nonalcoholic steatohepatitis (HERNANDEZ): Code(s): K75.81 - Nonalcoholic steatohepatitis (HERNANDEZ) Category: Medical Plan: Patient was followed by gastroenterology. He does history of nonalcoholic fatty liver. He continues on medication which has helped stabilize his liver enzymes. (6) Left median nerve neuropathy: Code(s): G56.12 - Other lesions of median nerve, left upper limb Category: Medical Plan: Patient's EMG consistent with carpal tunnel syndrome, will follow up with Orthopedics about surgical treatment. Did discuss the need for better control of his diabetes in order to promote healing after surgery Orders: Orders AMB Hemoglobin A1c Today Z13.9 - Encounter for screening, unspecified Medications: Changed From insulin glargine (Lantus Solostar U-100 Insulin) 20 units (0.2 mL) subcut QAM 30 days 6 mL 1RF E11.65 - Type 2 diabetes mellitus with hyperglycemia To insulin glargine (Lantus Solostar U-100 Insulin) 24 units (0.24 mL) subcut QAM 7.2 mL 1RF 30 days E11.65 - Type 2 diabetes mellitus with hyperglycemia Refilled blood-glucose sensor (FreeStyle Alexy 3 Plus Sensor device) As directed 2 ea 6RF E11.65 - Type 2 diabetes mellitus with hyperglycemia
[2025-02-23 10:48] VITALS: BP 118/76; PULSE 74; O2SAT 98; BMI 21.1
== END 2025-02-23 11:48 | disposition home or self-care (01) ==
LOC: HO.HMCH 10:13
PROVIDERS: PCP Physician Assistant; Visit Provider Physician Assistant
DX: G25.2 Other specified forms of tremor (principal); E11.65 Type 2 diabetes mellitus with hyperglycemia; E78.5 Hyperlipidemia, unspecified; I10 Essential (primary) hypertension; K75.81 Nonalcoholic steatohepatitis (NASH); G56.12 Other lesions of median nerve, left upper limb

== ENCOUNTER 2025-04-04 07:54 | Outpatient (AMB) | payer OTHER, SELFPAY ==
[2025-04-04 07:56] VITALS: BP 120/78; PULSE 68; O2SAT 99; BMI 20.6
--- NOTE | 2025-04-04 07:56 | A.OFFVIS_ITS ---
Vital Signs 04/04/25 07:56 Height 5 ft 2 in Weight 112 lb 8 oz BMI 20.6 BP 120/78 Blood Pressure Location Rt brachial Position Sitting Pulse 68 Pulse Source Pulse Oximeter Pulse Oximetry (%) 99 Oxygen Delivery Method Room Air Intake Visit Reasons: INP - Other specified forms of tremor Intake Note: Resting tremor Pensions Retirement Plan Specialist Required: No Accompanied by: Self / Same As Patient Allergies metformin Adverse Reaction (Intermediate, Verified 04/04/25 07:56) urinary frequncy Medication List - Last Reconciled 04/04/25 by Vanessa Flor MD atorvastatin 80 mg PO DAILY blood sugar diagnostic (Mobilitecuch Verio test strips) 2x daily blood-glucose meter Testing twice a day blood-glucose sensor (FuelMyBlogStyle Alexy 3 Plus Sensor device) As directed blood-glucose,silk screen printer,cont (FreeStyle Alexy 3 [place]) As directed cholecalciferol (vitamin D3) 25 mcg PO DAILY empagliflozin 25 mg PO QAM 90 days gemfibrozil 600 mg PO BID insulin glargine (Lantus Solostar U-100 Insulin) 24 units (0.24 mL) subcut QAM 30 days insulin lispro (Humalog KwikPen (U-100) Insulin) 5 units (0.05 mL) subcut TID 30 days lancets (CardioMEMSTouch UltraSoft 2 Lancet) Testing twice a day meclizine 25 mg PO BID PRN 14 days pen needle, diabetic daily pentoxifylline ER 400 mg PO BID 90 days primidone 50 mg PO BEDTIME 30 days promethazine 12.5 mg PO TID PRN 7 days ropinirole 1 mg PO BEDTIME 90 days semaglutide 1 mg (0.75 mL) subcut QWEEK 4 weeks tadalafil (Cialis) 20 mg PO DAILY PRN 10 days HPI Comments Details: 60y/o right handed male comes for evaluation of tremors. He started noticing tremors in his Right hand 3 mths ago. Prior to that he had some mild intermittent tremors. He also has milder tremors in his left hand . The tremors are more at rest. No tremors with action. It is more noicaen]ble if he is holding something Voice- softer Saliva- occasional drooling Handwriting- good Utensils- normal Personal hygiene- normal walking- normal Bowel movements- normal No falls no balance issues. No memory issues or sleep issues. Mood is stable He has chronic neck stiffness with some discomfort No radiating pain form neck No fh/o tremors No head injury No exposure to chemicals No h/o alcohol over use FOR[facility]LY [facility], [facility]1983 Medical History (Updated 04/04/25 @ 08:30 by Vanessa Flor MD) Coarse tremors Goiter Type 2 diabetes mellitus with hyperglycemia, without long-term current use of insulin Tubular adenoma of colon Colon cancer screening Urticaria Pain of right thumb Hypogonadism in male Erectile dysfunction Restless legs syndrome HERNANDEZ (nonalcoholic steatohepatitis) Impaired glucose metabolism Hyperlipidemia Hypertriglyceridemia Acute idiopathic gout of left foot Vitamin D deficiency HLD (hyperlipidemia) HTN (hypertension) T2DM (type 2 diabetes mellitus) Surgical History Hx of colonoscopy Hx of vasectomy Family History Father Diabetes CVA (cerebral vascular accident) Mother Diabetes CVD (cardiovascular disease) Breast cancer screening Social History Household Members: Spouse Housing: House Alcohol intake: current Alcohol intake frequency: holidays/special occasions only Alcohol type: beer Patient Tobacco Use Status: Never used Tobacco e-Cigarette/Vaping Use: Never Used Second Hand Smoke Exposure: No service: No Current occupational status: employed Current occupation: [employer] Cognitive needs: No Hearing needs: No Vision needs: No Physical Exam Vital Signs: Last Vital Signs Pulse 68 04/04/25 07:56 BP 120/78 04/04/25 07:56 Pulse Ox 99 04/04/25 07:56 Oxygen Delivery Method Room Air 04/04/25 07:56 BMI result Body Mass Index 20.6 Const General: cooperative, healthy appearing, comfortable and no acute distress Nutritional Appearance: average body habitus Orientation/consciousness: patient oriented x3 Eyes Pupils: Equal, round and reactive pupils present Neuro Other: normal facial expression and blink normal voice gait- mild decreased arm swing on RIGHT FFM and foot taps - normal General: patient oriented x3, gait normal, tone normal, moves all extremities and no focal motor deficits Cranial nerves: Yes Facial sensation intact/muscles of mastication intact, Yes Equal, round and reactive pupils present, Yes Bilaterally intact EOM present, Yes Nystagmus not present, Yes Normal facial strength present, Yes Midline tongue present, Yes Symmetric palate elevation present and Yes Ability to bilaterally elevate shoulders present Cognition (Neuro): normal cognition Gait exam (Neuro): Normal gait present Motor exam (neuro): 5/5 motor strength present throughout and Normal motor muscle tone present throughout Deep tendon reflexes (DTR's): Right triceps reflex intensity grade: 2+, Left triceps reflex intensity grade: 2+, Rt Biceps (C5, C6): 2+, Left biceps reflex intensity grade: 2+, Right brachioradialis reflex intensity grade: 1+, Left brachioradialis reflex intensity grade: 1+, Right patellar reflex intensity grade: 2+, Left patellar reflex intensity grade: 2+, Right ankle reflex intensity grade: 0 and Left ankle reflex intensity grade: 0 Coordination: waaflt-iu-tfhp test normal Assessment & Plan Assessment & Plan (1) Coarse tremors: Comment: no tremors on exam today ? exaggerated physiologic tremors Code(s): G25.2 - Other specified forms of tremor Category: Medical Plan Will monitor his tremors No extrapyramidal signs on exam today MRI brain to r/o focal lesions causing tremors Suggetsed he can discontinue primidone if he is not tolerating Orders: Orders TSH reflex Free T4 Today G25.2 - Other specified forms of tremor Coding Level of Care Code New Pt Level 4 (43250) Complex EM visit Add On G2211 Diagnoses Coarse tremors G25.2
== END 2025-04-04 08:33 | disposition home or self-care (01) ==
LOC: HO.HSMS 07:54
PROVIDERS: PCP Physician Assistant; Visit Provider Psychiatry & Neurology Neurology
DX: G25.2 Other specified forms of tremor (principal)
CPT/HCPCS: 99204

== ENCOUNTER 2025-04-11 13:43 | Outpatient (AMB) | payer OTHER, SELFPAY ==
--- NOTE | 2025-04-11 13:55 | A.OFFVIS_ITS ---
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 Patient complains of right index, thing, and ring finger numbness and tingling with/without a ssociated sleep disturbance. Patient reports symptoms are daily and intermittent. He denies finger locking. Has not tried braces, steroid injections, OT, or any pain medications. Denies any prior injuries or surgeries to the right hand. History of Type 2 Diabetes Mellitus. Last A1C 02/23/25- 9.9% Impression 02/01/25: 1. Wntd-fo-ygnviooh right and mild left median neuropathy across carpal tunnel 2. 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 Patient complains of right index, thing, and ring finger numbness and tingling with/without associated sleep disturbance. Patient reports symptoms are daily and intermittent. He denies finger locking. Has not tried braces, steroid injections, OT, or any pain medications. Denies any prior injuries or surgeries to the right hand. History of Type 2 Diabetes Mellitus. Last A1C 02/23/25- 9.9%. EMG has been performed. Patient states he is unsure of his blood sugars today. Impression 02/01/25: 1. Bxbi-kb-xkfdbnnm right and mild left median neuropathy across carpal tunnel 2. Lclw-jz-pfuowzrj right and mild left ulnar neuropathy across cubital tunnel [facility] Medical History (Updated 04/15/25 @ 10:19 by CHRISTA Coleman) Coarse tremors Goiter Type 2 diabetes mellitus with hyperglycemia, without long-term current use of insulin Tubular adenoma of colon Colon cancer screening Urticaria Pain of right thumb Hypogonadism in male Erectile dysfunction Restless legs syndrome HERNANDEZ (nonalcoholic steatohepatitis) Impaired glucose metabolism Hyperlipidemia Hypertriglyceridemia Acute idiopathic gout of left foot Vitamin D deficiency HLD (hyperlipidemia) HTN (hypertension) T2DM (type 2 diabetes mellitus) Surgical History Hx of colonoscopy Hx of vasectomy Family History (Updated 04/07/25 @ 10:32 by Shai Ortiz MA) Father Diabetes CVA (cerebral vascular accident) Mother Diabetes CVD (cardiovascular disease) Breast cancer screening Maternal Uncle Parkinson disease Social History (Updated 04/11/25 @ 13:58 by TIMOTHY Russ) Household Members: Spouse Housing: House Alcohol intake: current Alcohol intake frequency: holidays/special occasions only Alcohol type: beer Patient Tobacco Use Status: Never used Tobacco e-Cigarette/Vaping Use: Never Used Second Hand Smoke Exposure: No service: No Current occupational status: employed 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 Good APB muscle firing and good finger cross. Vascular: Capillary refill brisk. ROM: Patient can make a fist and extend all their digits. Skin: No lacerations or abrasions noted. General: No ecchymosis. No erythema or evidence of infection. Assessment & Plan Assessment & Plan (1) Bilateral carpal tunnel syndrome: Code(s): G56.03 - Carpal tunnel syndrome, bilateral upper limbs Category: Medical (2) Cubital tunnel syndrome, bilateral: Code(s): G56.23 - Lesion of ulnar nerve, bilateral upper limbs Category: Medical Plan 1. Bilateral carpal tunnel syndrome 2. Bilateral cubital tunnel syndrome Symptoms intermittent, daily, worse at night Patient is educated about this condition Patient is educated about the typical recovery course At this time, patient is educated that surgical intervention is the preferred treatment for both carpal and cubital tunnel releases However, we are unable to proceed with surgery at this time, as the patient's A1c is 9.9% Patient is educated that we need the patient's A1c to be 8.0 or below in order to proceed with surgery Patient states that he is getting much better control of his blood sugar recently, and feels that this will be something that has attainable for him Therefore, patient will call our office if his next A1c is 8.0 or below, and if this is the case, we will discuss surgical intervention at that time Patient understands this and is amenable to this plan Follow-up after A1c is below 8.0, sooner with any acute concerns Coding Level of Care Code New Pt Level 3 (95446) Diagnoses Bilateral carpal tunnel syndrome G56.03 Cubital tunnel syndrome, bilateral G56.23
[2025-04-11 13:56] VITALS: BMI 20.5
== END 2025-04-11 14:13 | disposition home or self-care (01) ==
LOC: HO.HOS 13:43
PROVIDERS: PCP Physician Assistant
DX: G56.03 Carpal tunnel syndrome, bilateral upper limbs (principal); G56.23 Lesion of ulnar nerve, bilateral upper limbs; E11.69 Type 2 diabetes mellitus with other specified complication
CPT/HCPCS: 99203